=== PATIENT | female | born 1945 | race Caucasian/White ===

== ENCOUNTER 2016-10-22 15:17 | Emergency (ER) | payer OTHER ==
[2016-10-22 15:39] VITALS: RESP 18; TEMP 98.4; O2SAT 96
[2016-10-22] MEDS ORDERED: NS 1,000 ML IV ONE ×2 (15:43→16:54)
[2016-10-22] MEDS ORDERED: ONDANSETRON 4 MG/2 ML VIAL IVP ONE (15:43)
--- NOTE | 2016-10-22 15:46 | EDPHY ---
H & P Stated Complaint: bladder infection, N/V Time Seen by Provider: 10/22/16 15:39 HPI/ROS: CHIEF COMPLAINT: Dysuria, nausea vomiting HISTORY OF PRESENT ILLNESS: Patient is a 71-year-old female comes to the emergency department complaining of dysuria and frequency persistently over the last 2 weeks. She states that she has been taking Azo and trying to drink more water. She has not had a fever or flank pain. Last night however she began having diarrhea and then she vomited once this morning. No blood in her stool or vomit. 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 REVIEW OF SYSTEMS: Constitutional: denies: chills, fever, recent illness, recent injury EENTM: denies: blurred vision, double vision, nose congestion Respiratory: denies: cough, shortness of breath Cardiac: denies: chest pain, irregular heart rate, lightheadedness, palpitations Gastrointestinal/Abdominal: See HPI Genitourinary: See HPI Musculoskeletal: denies: joint pain, muscle pain Skin: denies: lesions, rash, jaundice, bruising Neurological: denies: headache, numbness, paresthesia, tingling, dizziness, weakness Hematologic/Lymphatic: denies: blood clots, easy bleeding, easy bruising Immunologic/allergic: denies: HIV/AIDS, transplant EXAM: GENERAL: Well-appearing, well-nourished and in no acute distress. HEAD: Atraumatic, normocephalic. EYES: Pupils equal round and reactive to light, extraocular movements intact, sclera anicteric, conjunctiva are normal. ENT: TMs normal, nares patent, oropharynx clear without exudates. Dry mucous membranes. NECK: Normal range of motion, supple without lymphadenopathy or JVD. LUNGS: Breath sounds clear to auscultation bilaterally and equal. No wheezes rales or rhonchi. HEART: Regular rate and rhythm without murmurs, rubs or gallops. ABDOMEN: Soft, nontender, normoactive bowel sounds. No guarding, no rebound. No masses appreciated. BACK: No CVA tenderness, no spinal tenderness, step-offs or deformities EXTREMITIES: Normal range of motion, no pitting or edema. No clubbing or cyanosis. NEUROLOGICAL: Cranial nerves II through XII grossly intact. Normal speech, normal gait. 5/5 strength, normal movement in all extremities, normal sensation PSYCH: Normal mood, normal affect. SKIN: Warm, dry, normal turgor, no visible rashes or lesions. Source: Patient Exam Limitations: No limitations - Personal History Current Tetanus/Diphtheria Vaccine: Yes Current Tetanus Diphtheria and Acellular Pertussis (TDAP): Yes - Medical/Surgical History Hx Asthma: No Hx Chronic Respiratory Disease: No Hx Diabetes: No Hx Cardiac Disease: No Hx Renal Disease: No Hx Cirrhosis: No Hx Alcoholism: No Hx HIV/AIDS: No Hx Splenectomy or Spleen Trauma: No Other PMH: appy. breast surg r/t breast ca. Glaucoma. HTN - Family History Significant Family History: No pertinent family hx - Social History Smoking Status: Never smoked Alcohol Use: Sober Drug Use: None Constitutional: Initial Vital Signs Temperature (C) 36.9 C 10/22/16 15:35 Heart Rate 87 10/22/16 15:35 Respiratory Rate 18 10/22/16 15:35 Blood Pressure 178/91 H 10/22/16 15:35 O2 Sat (%) 96 10/22/16 15:35 O2 Delivery Mode Room Air Allergies/Adverse Reactions: Sulfa (Sulfonamide Antibiotics) [Sulfa(Sulfonamide Antibiotics)] Allergy (Mild, Verified 10/25/13 18:14) Vomiting oxycodone Allergy (Verified 10/22/16 15:39) Home Medications: Medication Instructions Recorded Atenolol/Chlorthalidone [Tenoretic 1 each PO DAILY 04/03/12 50 Tablet] Breast Ca Medicine 08/31/13 LUMIGAN 0.03% 08/31/13 Azithromycin [Zithromax tab 250 mg] 250 mg PO DAILY #6 tab 10/25/13 Benzonatate [Tessalon Pearles] 200 mg PO Q6-8PRN PRN #30 cap 10/25/13 Hydrocodone/APAP 5/325 [Shingleton 1 tab PO Q4 PRN #15 tab 10/25/13 5/325 (*)] Cephalexin [Keflex] 500 mg PO TID #21 cap 10/22/16 Ondansetron Odt [Zofran Odt 4 mg 4 mg PO Q4 PRN #20 tab 10/22/16 (RX)] Medical Decision Making ED Course/Re-evaluation: The patient's abdomen is completely nontender. We will hydrate and treat for nausea and obtain lab work. 4:30 p.m. the patient is feeling much better. She has not had any more vomiting or diarrhea. I will give her an IV dose of Keflex here. She still looks mildly dehydrated clinically. I will give her another 1 L of fluids. Patient is happy with this plan. She is feeling much better. I will discharge with antibiotics and prescriptions for nausea medication. She declines further workup or testing at this time. Differential Diagnosis: Partial list of the Differential diagnosis considered include but were not limited to; urinary tract infection, dehydration, vomiting and diarrhea and although unlikely based on the history and physical exam, I also considered sepsis, pyelonephritis, kidney stone, aneurysm, diverticulitis. I discussed these differential diagnoses and the plan with the patient as well as the usual and expected course. The patient understands that the diagnosis is provisional and that in medicine we are not always correct and that further workup is often warranted. Usual and customary warnings were given. All of the patient's questions were answered. The patient was instructed to return to the emergency department should the symptoms at all worsen or return, otherwise to followup with the physician as we discussed. - Data Points Laboratory Results: Laboratory Results 10/22/16 15:50 10/22/16 15:50 Microbiology Results: MICROBIOLOGY 10/22/16 Unknown Unspecified Urine Culture - Preliminary Gram Neg David [employer] Medications Given: Discontinued Medications Sodium Chloride (Ns) 1,000 mls @ 0 mls/hr IV ONCE ONE PRN Reason: Wide Open Stop: 10/22/16 15:44 Last Admin: 10/22/16 15:53 Dose: 1,000 mls Ceftriaxone Sodium 1 gm/ (Sodium Chloride) 100 mls @ 200 mls/hr IV EDNOW ONE PRN Reason: Protocol Stop: 10/22/16 17:02 Last Admin: 10/22/16 16:53 Dose: 100 mls Sodium Chloride (Ns) 1,000 mls @ 0 mls/hr IV ONCE ONE PRN Reason: Wide Open Stop: 10/22/16 16:55 Last Admin: 10/22/16 16:50 Dose: 1,000 mls Ondansetron HCl (Zofran) 4 mg IVP EDNOW ONE Stop: 10/22/16 15:44 Last Admin: 10/22/16 16:00 Dose: 4 mg Departure - Departure Disposition: Home, Routine, Self-Care Clinical Impression: Urinary tract infection Qualifiers: Urinary tract infection type: acute cystitis Hematuria presence: without hematuria Qualified Code(s): N30.00 - Acute cystitis without hematuria Condition: Good Instructions: Urinary Tract Infection in Women (ED) Referrals: Kelin Serrano MD [Primary Care Provider] - As per Instructions Prescriptions: Cephalexin [Keflex] 500 mg PO TID #21 cap Ondansetron Odt [Zofran Odt 4 mg (RX)] 4 mg PO Q4 PRN #20 tab PRN Reason: Nausea & Vomiting
[2016-10-22 16:07] LABS: % IMMATURE GRANULYOCYTES 0.2 % (0.0-1.1); ABSOLUTE IMMATURE GRANULOCYTES 0.02 10^3/uL (0.00-0.10); ADD DIFF? NO; ADD MORPH? NO; ADD SCAN? NO; ATYPICAL LYMPHOCYTE FLAG 0 (0-99); FRAGMENT RBC FLAG 0 (0-99); HEMATOCRIT 40.7 % (38.0-47.0); HEMOGLOBIN 14.1 g/dL (12.6-16.3); LEFT SHIFT FLG 0 (0-99); LIPEMIA HEMOLYSIS FLAG 90 (0-99); MEAN CELL HEMOGLOBIN 31.5 pg (27.9-34.1); MEAN CELL HEMOGLOBIN CONCENTR. 34.6 g/dL (32.4-36.7); MEAN CELL VOLUME 91.1 fL (81.5-99.8); MEAN PLATELET VOLUME 10.4 fL (8.7-11.7); PLATELET CLUMPS FLAG 10 (0-99); PLATELET COUNT 247 10^3/uL (150-400); RED BLOOD CELL COUNT 4.47 10^6/uL (4.18-5.33); RED CELL DISTRIBUTION WIDTH 12.7 % (11.5-15.2)
[2016-10-22 16:13] LABS: COLOR ORANGE
[2016-10-22 16:22] LABS: BACTERIA 4+ /hpf (NONE SEEN); MUCUS 1+ /lpf (NONE-1+); WBC,URINE 15-25 /hpf (0-3)
[2016-10-22 16:27] LABS: ALANINE AMINOTRANSFERASE 31 IU/L (9-52); ALBUMIN 4.1 g/dL (3.5-5.0); ALKALINE PHOSPHATASE 91 IU/L (38-126); ANION GAP 18 mEq/L (8-16); ASPARTATE AMINOTRANSFERASE 26 IU/L (14-46); BILIRUBIN,TOTAL 1.5 mg/dL (0.1-1.4); BILIRUBIN-CONJUGATED 0.2 mg/dL (0.0-0.5); BILIRUBIN-UNCONJUGATED 1.3 mg/dL (0.0-1.1); CARBON DIOXIDE 18 mEq/l (22-31); CHLORIDE 102 mEq/L (97-110); CREATININE 0.6 mg/dL (0.6-1.0); GLOMERULAR FILTRATION RATE > 60; GLUCOSE 107 mg/dL (70-100); POTASSIUM 3.9 mEq/L (3.5-5.2); SODIUM 138 mEq/L (134-144); TOTAL PROTEIN 7.1 g/dL (6.3-8.2)
[2016-10-22 18:24] VITALS: BP 177/87; PULSE 85
== END 2016-10-22 18:18 | disposition home or self-care (01) ==
LOC: CED 15:17
DX: N30.00 Acute cystitis without hematuria (principal); B96.1 Klebsiella pneumoniae [K. pneumoniae] as the cause of diseases classified elsewhere; I10 Essential (primary) hypertension; Z85.3 Personal history of malignant neoplasm of breast
CPT/HCPCS: 96361; 96365; 96375; 99284; J0696; J2405; 80048-PO; 80076-PO; 81003-PO; 81015-PO; 83690-PO; 85025-PO

== ENCOUNTER → 2017-04-28 | Outpatient (CLI) | payer OTHER | LOC: FIMAGING 16:01 | PROVIDERS: ATTEND Internal Medicine Hematology & Oncology | DX: Z12.31 Encounter for screening mammogram for malignant neoplasm of breast (principal); Z85.3 Personal history of malignant neoplasm of breast | CPT/HCPCS: G0202-52 ==

== ENCOUNTER 2017-06-12 15:08 | Emergency (ER) | payer OTHER ==
[2017-06-12 15:16] VITALS: TEMP 97.7
[2017-06-12] MEDS ORDERED: CEPHALEXIN 500 MG CAP PO ONE (15:35)
[2017-06-12] MEDS ORDERED: ATENOLOL 50 MG TAB PO ONE (15:35)
--- NOTE | 2017-06-12 15:46 | EDPHY ---
H & P Stated Complaint: HTN/YOUSSEF ON ABX FOR UTI Time Seen by Provider: 06/12/17 15:26 HPI/ROS: CHIEF COMPLAINT: High blood pressure urinary tract infection HISTORY OF PRESENT ILLNESS: The patient is a 71-year-old healthy female who was referred to the emergency department by the triage nurse at her primary is office. She has been dealing with urinary tract infection for the last 10 days. She took a 7 day course of Cipro and returned to the clinic stating that it did not help and they extended her to a 10 day course. She has now finished all 10 days and states that she still having symptoms. She states that Keflex has worked better for her in the past and wishes to be switched. While she was on the phone with her triage nurse she told him that her blood pressure has been running high around 202/119. Her doctor had told her to monitor because they noticed it was high the office but did not want to add to her antihypertensives while she was having the urine infection. The triage nurse became alarmed this high blood pressure and recommended the patient come to the ER. The patient did not think that she needed to come but was Obedient to nurses request. She denies chest pain. She denies shortness of breath. To me she denies headache. She denies nausea vomiting or diarrhea. REVIEW OF SYSTEMS: Constitutional: denies: chills, fever, recent illness, recent injury EENTM: denies: blurred vision, double vision, nose congestion Respiratory: denies: cough, shortness of breath Cardiac: denies: chest pain, irregular heart rate, lightheadedness, palpitations Gastrointestinal/Abdominal: denies: abdominal pain, diarrhea, nausea, vomiting, blood streaked stools Genitourinary: See HPI Musculoskeletal: denies: joint pain, muscle pain Skin: denies: lesions, rash, jaundice, bruising Neurological: denies: headache, numbness, paresthesia, tingling, dizziness, weakness Hematologic/Lymphatic: denies: blood clots, easy bleeding, easy bruising Immunologic/allergic: denies: HIV/AIDS, transplant EXAM: GENERAL: Well-appearing, well-nourished and in no acute distress. HEAD: Atraumatic, normocephalic. EYES: Pupils equal round and reactive to light, extraocular movements intact, sclera anicteric, conjunctiva are normal. ENT: TMs normal, nares patent, oropharynx clear without exudates. Moist mucous membranes. NECK: Normal range of motion, supple without lymphadenopathy or JVD. LUNGS: Breath sounds clear to auscultation bilaterally and equal. No wheezes rales or rhonchi. HEART: Regular rate and rhythm without murmurs, rubs or gallops. ABDOMEN: Soft, nontender, normoactive bowel sounds. No guarding, no rebound. No masses appreciated. BACK: No CVA tenderness, no spinal tenderness, step-offs or deformities EXTREMITIES: Normal range of motion, no pitting or edema. No clubbing or cyanosis. NEUROLOGICAL: Cranial nerves II through XII grossly intact. Normal speech, normal gait. 5/5 strength, normal movement in all extremities, normal sensation PSYCH: Normal mood, normal affect. SKIN: Warm, dry, normal turgor, no visible rashes or lesions. Source: Patient Exam Limitations: No limitations - Personal History Current Tetanus/Diphtheria Vaccine: Yes - Medical/Surgical History Hx Asthma: No Hx Chronic Respiratory Disease: No Hx Diabetes: No Hx Cardiac Disease: No Hx Renal Disease: No Hx Cirrhosis: No Hx Alcoholism: No Hx HIV/AIDS: No Hx Splenectomy or Spleen Trauma: No Other PMH: appy. breast surg r/t breast ca. Glaucoma. HTN - Family History Significant Family History: No pertinent family hx - Social History Smoking Status: Never smoked Alcohol Use: Sober Drug Use: None Constitutional: Initial Vital Signs Temperature (C) 36.5 C 06/12/17 15:12 Heart Rate 66 06/12/17 15:12 Respiratory Rate 16 06/12/17 15:12 Blood Pressure 186/99 H 06/12/17 15:12 O2 Sat (%) 96 06/12/17 15:12 O2 Delivery Mode Room Air Allergies/Adverse Reactions: Sulfa (Sulfonamide Antibiotics) [Sulfa(Sulfonamide Antibiotics)] Allergy (Mild, Verified 06/12/17 15:09) Vomiting oxycodone Allergy (Verified 06/12/17 15:09) Home Medications: Medication Instructions Recorded Atenolol/Chlorthalidone [Tenoretic 1 each PO DAILY 04/03/12 50 Tablet] Breast Ca Medicine 08/31/13 LUMIGAN 0.03% 08/31/13 Cephalexin [Keflex] 500 mg PO TID #21 cap 10/22/16 Cephalexin [Keflex] 500 mg PO TID #21 cap 06/12/17 Lisinopril 06/12/17 Medical Decision Making ED Course/Re-evaluation: The patient is asymptomatic other than her urinary complaints. We will send her urine for cultures and switch her to Keflex. This is more favorable antibiotic coverage an [facility]. She is agreeable to this. I will also give her an extra dose of atenolol. We will observe. Otherwise she does not wish to have blood work or EKG. I believe that this is reasonable. The patient is borderline bradycardic. Instead of giving her extra atenolol we will treat her with clonidine. The patient has had some decrease in her blood pressure although it is intermediate. She is asymptomatic and does not wish to wait here any longer. Differential Diagnosis: Partial list of the Differential diagnosis considered include but were not limited to; urinary tract infection, hypertension, anxiety and although unlikely based on the history and physical exam, I also considered acute coronary disease, CVA, sepsis. I discussed these differential diagnoses and the plan with the patient as well as the usual and expected course. The patient understands that the diagnosis is provisional and that in medicine we are not always correct and that further workup is often warranted. Usual and customary warnings were given. All of the patient's questions were answered. The patient was instructed to return to the emergency department should the symptoms at all worsen or return, otherwise to followup with the physician as we discussed. - Data Points Laboratory Results: 06/12/17 15:30 Urine Color PALE YELLOW Urine Appearance CLEAR Urine pH 7.0 (5.0-7.5) Ur Specific [place] 1.004 (1.002-1.030) Urine Protein 2+ H (NEGATIVE) Urine Ketones NEGATIVE (NEGATIVE) Urine Blood 1+ H (NEGATIVE) Urine Nitrate NEGATIVE (NEGATIVE) Urine Bilirubin NEGATIVE (NEGATIVE) Urine Urobilinogen NEGATIVE EU EU (0.2-1.0) Ur Leukocyte Esterase NEGATIVE (NEGATIVE) Urine RBC 1-3 /hpf /hpf (0-3) Urine WBC 3-5 /hpf H /hpf (0-3) Ur Epithelial Cells NONE SEEN /lpf /lpf (NONE-1+) Urine Mucus TRACE /lpf /lpf (NONE-1+) Urine Glucose NEGATIVE (NEGATIVE) Medications Given: Discontinued Medications Cephalexin HCl (Keflex) 500 mg PO EDNOW ONE PRN Reason: Protocol Stop: 06/12/17 15:36 Last Admin: 06/12/17 16:17 Dose: 500 mg Clonidine (Catapres) 0.1 mg PO EDNOW ONE Stop: 06/12/17 16:13 Last Admin: 06/12/17 16:17 Dose: 0.1 mg Ibuprofen (Motrin) 600 mg PO EDNOW ONE Stop: 06/12/17 16:23 Last Admin: 06/12/17 16:24 Dose: 600 mg Departure - Departure Disposition: Home, Routine, Self-Care Clinical Impression: Urinary tract infection Qualifiers: Urinary tract infection type: acute cystitis Hematuria presence: without hematuria Qualified Code(s): N30.00 - Acute cystitis without hematuria Hypertension Qualifiers: Hypertension type: essential hypertension Qualified Code(s): I10 - Essential ( primary) hypertension Condition: Fair Instructions: Urinary Tract Infection in Women (ED), Hypertension (ED) Referrals: NONE *PRIMARY CARE P,. [Primary Care Provider] - As per Instructions Kelin Serrano MD [Medical Doctor] - As per Instructions Prescriptions: Cephalexin [Keflex] 500 mg PO TID #21 cap
[2017-06-12] MEDS ORDERED: METOPROLOL TARTRATE 25 MG TAB ONE (15:55)
[2017-06-12] MEDS ORDERED: IBUPROFEN 600 MG TAB PO ONE (16:22)
[2017-06-12 16:33] VITALS: RESP 16
[2017-06-12 16:52] VITALS: BP 186/110; PULSE 73; O2SAT 98
== END 2017-06-12 16:51 | disposition home or self-care (01) ==
DX: I10 Essential (primary) hypertension (principal); N30.00 Acute cystitis without hematuria; B96.89 Other specified bacterial agents as the cause of diseases classified elsewhere; Z85.3 Personal history of malignant neoplasm of breast

== ENCOUNTER 2017-06-15 11:09 | Inpatient (IN) | payer OTHER ==
--- NOTE | 2017-06-15 11:21 | EDPHY ---
HPI/HX/ROS/PE/MDM Narrative: CHIEF COMPLAINT: Bradycardia HPI: This patient is a 71 year old female with history of hypertension presenting with shortness of breath and bradycardia. She was evaluated in this emergency department 06/12/16 for persistent UTI and hypertension. She was discharged with a course of Keflex at that time. She is generally on Atenolol 50mg daily and Lisinopril for her hypertension. She called her primary care provider's office regarding her hypertension, and was instructed to take one extra Atenolol if her blood pressure remained high. For the last two night, she has taken two 50mg Atenolol tablets along with her lisinopril. This morning, she woke and felt her pulse was too slow. She measured it, and noted it to be around 40 bpm, so presents for evaluation. She states there is no chance she took any other additional medications. She feels warm, clammy, and short of breath at this time. She denies chest pain, syncope, nausea, vomiting, flank pain, or other associated symptoms. REVIEW OF SYSTEMS: Aside from elements discussed in the HPI, a comprehensive 10-point review of systems was reviewed and is negative. PMH: Breast cancer s/p surgical resection. Glaucoma. Appendectomy. SOCIAL HISTORY: . at bedside. Retired. PHYSICAL EXAM: General:Patient is alert, in no acute distress. ENT:Eyes are normal to inspection. ENT inspection normal. Neck: Normal inspection. Full range of motion. Respiratory:No respiratory distress. Breath sounds normal bilaterally. Cardiovascular: Bradycardic. Strong peripheral pulses. Normal cap refill. Abdomen:The abdomen is nontender to palpation. There are no peritoneal signs. There are normal bowel sounds. Back: Normal to inspection. No tenderness to palpation. Skin: Normal color. No rash. Warm and dry. Extremities: Normal appearance. Full range of motion. Neuro: Oriented x3. Normal motor function. Normal sensory function. ED Course: 71 y/o female presents with bradycardia and shortness of breath after doubling her Atenolol dosage for the past two days. The patient is alert and talking, in no apparent distress. Pacer pads placed. Plan for EKG, chest x-ray, labs including CBC, BMP, Troponin. EKG was ordered and interpreted by myself. Please see inDplay system for official reading. Laboratory studies unremarkable. Troponin negative. 11:[address] Canales, welfare director. He will consult. 12:28 Dr. Canales at bedside. He recommends admission for further observation, and accepts the patient for admission for bradycardia. - Data Points Laboratory Results: Laboratory Results 06/15/17 11:31 06/15/17 11:31 06/15/1718 06/15/17 11:31 11:31 11:31 WBC 6.22 10^3/uL 10^3/uL (3.80-9.50) RBC 4.52 10^6/uL 10^6/uL (4.18-5.33) Hgb 14.3 g/dL g/dL (12.6-16.3) Hct 42.1 % % (38.0-47.0) MCV 93.1 fL fL (81.5-99.8) MCH 31.6 pg pg (27.9-34.1) MCHC 34.0 g/dL g/dL (32.4-36.7) RDW 13.0 % % (11.5-15.2) Plt Count 273 10^3/uL 10^3/uL (150-400) MPV 11.2 fL fL (8.7-11.7) Neut % (Auto) 65.6 % % (39.3-74.2) Lymph % (Auto) 20.1 % % (15.0-45.0) [place] % (Auto) 10.1 % % (4.5-13.0) Eos % (Auto) 1.9 % % (0.6-7.6) Baso % (Auto) 1.8 % H % (0.3-1.7) Nucleat RBC Rel Count 0.0 % % (0.0-0.2) Absolute Neuts (auto) 4.08 10^3/uL 10^3/uL (1.70-6.50) Absolute Lymphs (auto) 1.25 10^3/uL 10^3/uL (1.00-3.00) Absolute Monos (auto) 0.63 10^3/uL 10^3/uL (0.30-0.80) Absolute Eos (auto) 0.12 10^3/uL 10^3/uL (0.03-0.40) Absolute Basos (auto) 0.11 10^3/uL H 10^3/uL (0.02-0.10) Absolute Nucleated RBC 0.00 10^3/uL 10^3/uL (0-0.01) Immature Gran % 0.5 % % (0.0-1.1) Immature Gran # 0.03 10^3/uL 10^3/uL (0.00-0.10) Sodium 141 mEq/L mEq/L (134-144) Potassium 5.0 mEq/L mEq/L (3.5-5.2) Chloride 106 mEq/L mEq/L (97-110) Carbon Dioxide 21 mEq/l L mEq/l (22-31) Anion Gap 14 mEq/L mEq/L (8-16) BUN 23 mg/dL mg/dL (7-23) Creatinine 0.9 mg/dL mg/dL (0.6-1.0) Estimated GFR > 60 Glucose 136 mg/dL H mg/dL (70-100) Calcium 10.0 mg/dL mg/dL (8.5-10.4) Magnesium 1.9 mg/dL mg/dL (1.6-2.3) Troponin I < 0.012 ng/mL ng/mL (0.000-0.034) TSH 1.910 uIU/mL uIU/mL (0.465-4.680) Medications Given: Anastrozole (Arimidex) 1 mg PO DAILY [facility] Stop: 12/12/17 13:44 Last Admin: 06/15/17 14:44 Dose: 1 mg Bimatoprost (Lumigan 0.01%) 1 drops EACHEYE DAILY KIRBY Stop: 12/12/17 13:44 Last Admin: 06/15/17 14:38 Dose: Not Given Cephalexin HCl (Keflex) 500 mg PO TID KIRBY PRN Reason: Protocol Stop: 07/15/17 15:59 Last Admin: 06/15/17 14:41 Dose: 500 mg Potassium Chloride/Sodium Chloride (Ns W/ 20 Kcl/L) 1,000 mls @ 125 mls/hr IV CONT KIRBY Stop: 12/12/17 13:44 Last Admin: 06/15/17 14:26 Dose: 1,000 mls Lisinopril (Zestril) 5 mg PO DAILY KIRBY Stop: 12/12/17 13:44 Last Admin: 06/15/17 14:38 Dose: Not Given General Time Seen by Provider: 06/15/17 11:20 Initial Vital Signs: Initial Vital Signs Temperature (C) 36.4 C 06/15/17 11:14 Heart Rate 41 L 06/15/17 11:14 Respiratory Rate 20 06/15/17 11:14 Blood Pressure 117/80 06/15/17 11:14 O2 Sat (%) 98 06/15/17 11:14 O2 Delivery Mode Room Air Allergies/Adverse Reactions: Sulfa (Sulfonamide Antibiotics) [Sulfa(Sulfonamide Antibiotics)] Allergy (Mild, Verified 06/15/17 11:13) Vomiting oxycodone Allergy (Verified 06/15/17 11:13) Home Medications: Medication Instructions Recorded Anastrozole [Arimidex 1 mg (*)] 1 mg PO DAILY 08/31/13 Bimatoprost 0.01% [Lumigan 0.01% 1 drops EACHEYE DAILY 08/31/13 (*)] Lisinopril [Zestril 5 mg (*)] 5 mg PO DAILY 06/12/17 Atenolol [Tenormin 50 mg (*)] 50 mg PO DAILY 06/15/17 Cephalexin [Keflex] 500 mg PO TID 06/15/17 Departure - Departure Disposition: [facility] Inpatient Acute Clinical Impression: Bradycardia Condition: Fair Report Scribed for: Mayco Jarrett Report Scribed by: Melba Joshi Date of Report: 06/15/17 Time of Report: 11:41 Physician Review and Approval Statement: Portions of this note were transcribed by an ED scribe. I personally performed the history, physical exam, and medical decision making; and confirm the accuracy of the information in the transcribed note.
--- NOTE | 2017-06-15 11:27 | CPEKG ---
Heart Rate: 76 RR Interval: 789 P-R Interval: 132 QRSD Interval: 80 QT Interval: 388 QTC Interval: 437 P Axson: 55 QRS Axson: 11 T Wave Axson: 20 EKG Severity - BORDERLINE ECG - EKG Impression: SINUS RHYTHM EKG Impression: PROBABLE LEFT ATRIAL ABNORMALITY Electronically Signed By: David Russo 16-Jun-2017 20:28:48
[2017-06-15 13:04] LABS: PLATELET COUNT 273 10^3/uL (150-400)
[2017-06-15] MEDS ORDERED: ALBUTEROL 3 ML DEYVIAL IH PRN (13:36)
[2017-06-15] MEDS ORDERED: ZOLPIDEM TARTRATE 5 MG TAB PO PRN (13:36)
[2017-06-15] MEDS ORDERED: diphenhydrAMINE 25 MG CAP PO PRN (13:36)
[2017-06-15] MEDS ORDERED: ONDANSETRON 4 MG/2 ML VIAL IVP PRN (13:36)
[2017-06-15] MEDS ORDERED: ONDANSETRON DISINTEGRATING 4 MG TAB PO PRN (13:36)
[2017-06-15] MEDS ORDERED: NS W/ 20 KCl/L 1,000 ML IV SCH (13:45)
--- NOTE | 2017-06-15 14:28 | GHP ---
[f rep st] HISTORY AND PHYSICAL DATE OF ADMISSION: 06/15/2017 CHIEF COMPLAINT: Shortness of breath, exertional shortness of breath and bradycardia. HISTORY OF PRESENT ILLNESS: This is a 71-year-old female with a long history of hypertension, which for years has been treated with atenolol only. Approximately 1 year ago, lisinopril was added and enriqueta bustillos continued to do well. 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 These episodes would happen in the morning and she noticed them when she was wa lking up a small hill from her car to her place of work. She would become short of breath she notice d and feel very tired, sometimes flushed, and it would pass in approximately 30 seconds. She has not ed these things without further evaluation until 1 or 2 days ago, when her blood pressure was noted t o be elevated and her PCP suggested that she take an extra dose of her atenolol, thus she went from a tenolol 50 mg q.h.s. to 100 mg q.h.s. yesterday evening. This morning she got out of bed, she felt t ired, and noted that when she climbs steps she was short of breath and again flushed. As opposed to the previous episodes which would resolve in approximately 30 seconds, this did not resolve. She con tinued to feel tired, flushed and would experience exertional shortness of breath then when she was w alking on the level. She took her own blood pressure and it was approximately 140/80, yet her pulse was in the 40s. Thus, she came to the emergency department concerned that probably she had taken too much atenolol, but was concerned that if her heart rate actually declined further. In the emergency department, she was noted to have a long pause, with a heart rate less than 30 on 1 monitor strip. During this time, she has felt warm and slightly clammy, and had exertional shortness of breath, but she denies having chest pain, syncope, nausea, vomiting, any flank pain or preceding fever, cold, cough, sore throat, loose stools or diarrhea. There has also been no recent head trauma, visual or auditory changes. She denies any prior history of coronary artery disease. She also reports that she thinks she has blood sugar issues, but only in the morning, again this date s to the last 6-12 months, when she would notice that suddenly in the morning she would become quite hungry and sometimes very weak. These episodes also seen in the past after she would eat. PAST MEDICAL HISTORY: 1. Hypertension for many years, as noted in the HPI. 2. Breast carcinoma, diagnosed in 2011, status post right modified mastectomy. 3. Osteopenia noted on a recent DEXA scan. PAST SURGICAL HISTORY: An appendectomy and a right modified radical mastectomy. REVIEW OF SYSTEMS: A 10-point review of systems is negative, except as noted in the HPI. Note that she has recently, in the last few days, noted dysuria and was prescribed Keflex, which she is taking at the time of admission. MEDICATIONS: Are noted in the EMR, and will be reconciled, these include lisinopril 5 mg daily, Kefl ex, which she has taken for a recent UTI. Lumigan eyedrops, atenolol usually prescribed at 50 mg roshni ly, and Arimidex 1 mg daily. 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 Tobacco: None. Alcohol: She will have a glass of wine on an occasion, but not on a regular daily basis. Drugs: None. FAMILY HISTORY: Positive for her father and siblings who have hypertension. Her mother was otherwis e healthy. ALLERGIES: None, except she reports sulfa causes an upset stomach. It does not result in a rash or bronchopulmonary problems. PHYSICAL EXAM: GENERAL: A pleasant, alert female, who appears in no distress, but she is slightly a nxious. VITAL SIGNS: Blood pressures were normal, but she has one reading at 190/98, this will be r etaken. She has a monitor strip, which shows bradycardia with pause, to a rate of less than 30. She is currently in a sinus rhythm on the monitor at approximately 60-70. Room air oxygenation is sola l. HEENT: Normal. Tongue, buccal mucosa appear normal. Eyes show bulbar conjunctivae injection wit hout exudate. NECK: Supple without meningismus. JVP is not elevated. LUNGS: Clear to P and A wit hout wheezing or rales. HEART: Singular S1, physiologically split S2. No murmur, gallop, or rub is noted. CHEST WALL: Shows normal breast architecture without masses. ABDOMEN: Slightly overweight. Normoactive bowel sounds. No masses, tenderness, or organomegaly. E XTREMITIES: No edema, cyanosis, clubbing. NEUROLOGIC: Oriented x3. Slightly anxious female. Cran ial nerves 2-12 intact to specific testing. Motor and sensory function are intact. LABORATORY: CBC is entirely normal. Her BMP is also normal, except for a glucose of 136. A troponi n is pending. Her potassium is 5.0. Electrocardiogram reveals a sinus rhythm at 76, RP 0.13, QRS of 0.08, QT interval is 0.437 and 0.42. There is a probable left atrial abnormality, with an inverted T-wave in V1 and V2. Otherwise, ECG i s normal. Chest x-ray is pending at this dictation. ASSESSMENT: 1. Six month history of bradycardia, and now noted to have an extended sinus pause today, following taking atenolol 100 mg yesterday evening. She has the 6 month history of shortness of breath in the morning, along with flushing. It is possible that this represents extensive beta blockade by atenolo l, as she takes it in the evening. As the day wears on, the level of atenolol then declines, and she no longer experiences the symptoms. Today, she is seen because she took 100 mg of atenolol in the e vening, and she has clear bradycardia secondary to that. It is reasonable to assume that we should l ower the dose of atenolol or stop it all together, as she may be having excess beta blockade with thi s long-acting beta kunal, a more short-acting beta kunal could be used or we could stop it comple tely, and use other medication such as calcium channel blockers and RICHARD inhibitors to manage her hype rtension. As she has no history of coronary disease, there is no additional particular reason to use a beta kunal in this lady. 2. Hypertension. She has a long history of hypertension, which is most recently treated with atenol ol, and more recently atenolol and lisinopril. During this admission, I will stop her atenolol, and we will continue lisinopril, increase its dose and add a second agent if needed. 3. Osteopenia by DEXA scan. This can be followed by her PCP, but she may do well to be taking calci um in light of her history of breast carcinoma. 4. Breast carcinoma, diagnosed 2011, currently being followed by her PCP with yearly mammography. L ast mammography appeared benign. 5. Report of lightheadedness, and a question of the patient is whether she is having blood sugar iss ues. It is possible that the episodes of lightheadedness are more related to her beta blockade than they are to blood sugar issues. As I do not know that for a fact, a hemoglobin A1c will be ordered, and I will order q.6 hour glucose checks just to evaluate the matter during her hospitalization. 6. Her code status will be full. 7. The patient will be admitted on observation status. Time of admission required 50 minutes. /[id number]/MODL
[2017-06-15] MEDS: LISINOPRIL 5 MG TAB PO SCH ×2 (14:38→18:19)
[2017-06-15] MEDS: BIMATOPROST 0.01% 2.5 ML OPHT.BTL EACHEYE SCH (14:38)
[2017-06-15] MEDS: CEPHALEXIN 500 MG CAP PO SCH ×2 (14:41→21:59)
[2017-06-15] MEDS: ANASTROZOLE 1 MG TAB PO SCH (14:44)
[2017-06-15] MEDS ORDERED: ATROPINE SULFATE 1 MG/10 ML SYR ONE (15:06)
--- NOTE | 2017-06-15 18:58 | GCON ---
[f rep st] CONSULTATION HISTORY OF PRESENT ILLNESS: This is a 71-year-old female with past history of hypertension, for which she has been treated with atenolol. About a year back, lisinopril was added to her regimen. Six months back, the patient started experiencing episodes of exertional shortness of breath in the morning when she was waking up and when she was walking up a small hill from her car to her work place. This would last about 30 seconds and would resolve on its own. No progression of this has been noted. On further questioning, she mentions that she has generally been not feeling well and she has had occasional feeling of being flushed which lasts sec. However, recently she has noted elevated blood pressure and it was suggested that she use additional atenolol. She believes that she was given additional 50 of it, in addition to her usual atenolol on Friday, and then she took 100 mg of atenolol on Friday evening. When she woke up this morning, she felt headache and did not feel like herself. She also felt flushed, a feeling similar to what she has felt in the last six months. She attributed this to not having eaten, mainly for breakfast, however , symptoms continued. She checked her blood pressure and her blood pressure was 140/80 and pulse was 40. Considering her symptoms, as well as these numbers , she decided to come to the emergency room. When evaluated in the ER, she was noted to have significant pauses which were [id number]-cm-[id number] over time. These have decreased. On further history, she also mentioned that while walking from the ER lobby to an ER room, she felt lightheaded and dizzy. She continues to feel warm and clammy. She denies any chest pain. She denies any syncope. No recent fevers or chills. PAST MEDICAL HISTORY: Hypertension, breast carcinoma, status post mastectomy, osteopenia. PAST SURGICAL HISTORY: Appendectomy and right modified radical mastectomy. REVIEW OF SYSTEMS: Other than the above, dysuria. MEDICATIONS: Atenolol as mentioned above, lisinopril, Arimidex. 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 No tobacco use. No significant alcohol use. FAMILY HISTORY: Positive for hypertension. ALLERGIES: None, but intolerant to sulfa. PHYSICAL EXAMINATION: GENERAL: Alert, oriented female, with no acute distress. VITAL SIGNS: Blood pressure of 140/80, pulse ranging from 67-77, and during my evaluation 98% oxygen saturation. HEENT: Pupils equal, reacting to light, accommodating. NECK: No thyromegaly. No lymphadenopathy. No JVD. CHEST: Good air entry bilaterally. No rales, rhonchi, or rub. HEART: S1, S2 regular. No S3 heard. No murmurs noted. ABDOMEN: Soft, nontender. No guarding or rigidity. Bowel sounds present. EXTREMITIES: No edema. NEUROLOGIC: Alert, oriented x3. Cranial nerves grossly intact. PSYCHIATRIC: Asking appropriate questions. In good spirits. LABORATORY DATA: Normal. EKG shows normal sinus rhythm, occasional long pauses on tele monitor, even on EKG this a.m. it was noted. IMPRESSION/PLAN: This is a 71-year-old female, who has been treated with lisinopril and atenolol for hypertension, now with increased doses and having increased symptoms of dizziness, headache, warm feeling. It is likely that the pauses are secondary to her additional dose of atenolol and we will wait for 24-30 hours for the atenolol to wash out and see if she has pauses at baseline. However, at current point in time, it is reasonable to stop the atenolol and use lisinopril as a primary antihypertensive agent. I recommend to increase the lisinopril to 10 mg daily, and if need be, increase to 20 mg. We will continue to monitor on telemetry. If despite stopping the beta kunal, and she continues to show these pauses with symptoms, pacemaker will be indicated. Thank you for letting us participate in patient's care. /[id number]/MODL MTDD
[2017-06-15] MEDS: ACETAMINOPHEN 325 MG TAB PO PRN (23:24)
[2017-06-16] MEDS: ACETAMINOPHEN 325 MG TAB PO PRN ×3 (06:09→18:01)
--- NOTE | 2017-06-16 08:04 | CPEKG ---
Heart Rate: 53 RR Interval: 1132 P-R Interval: 124 QRSD Interval: 80 QT Interval: 404 QTC Interval: 380 P [place]: 59 QRS [place]: 25 T Wave [place]: 30 EKG Severity - ABNORMAL ECG - EKG Impression: SINUS RHYTHM EKG Impression: SINUS PAUSE/ARREST WITH ATRIAL ESCAPE EKG Impression: PROBABLE LEFT ATRIAL ABNORMALITY Electronically Signed By: David Russo 16-Jun-2017 20:28:36
--- NOTE | 2017-06-16 08:30 | CPEKG ---
Heart Rate: 44 RR Interval: 1364 P-R Interval: 132 QRSD Interval: 78 QT Interval: 468 QTC Interval: 401 P [place]: 61 QRS [place]: 28 T Wave [place]: 31 EKG Severity - BORDERLINE ECG - EKG Impression: SINUS BRADYCARDIA EKG Impression: PROBABLE LEFT ATRIAL ABNORMALITY Electronically Signed By: Geoffrey Koch 17-Jun-2017 13:51:36
[2017-06-16] MEDS ORDERED: LISINOPRIL 10 MG TAB PO SCH (09:00)
[2017-06-16] MEDS ORDERED: LISINOPRIL 10 MG TAB PO ONE (09:04)
--- NOTE | 2017-06-16 09:36 | ASMTCMCOM ---
CM Note CM Note Notes: 06/16/2017 Case Management Note Reviewed chart. There are no case management d/c needs identified at this time d/t pt age, marital status and activity levels prior to admission. There are no PT or OT consults ordered at this time. Case Management d/c poc: anticipating home independent with follow up as directed. Case Management available if needs change. Date Signed: 06/16/2017 09:37 AM Electronically Signed By:Kelin Pettit RN
--- NOTE | 2017-06-16 10:05 | PDCARPN ---
Cardiology Progress Note Chief Complaint: Dizziness and lightheadedness Assessment/Plan: Assessment: Patient is a 71 y/o female with history of HTN, but no HLP, CAD, or DM, who presents to the ER at [facility] with complaints of worsening (acutely) dizziness and lightheadedness. Telemetry with pauses (up to about 2.5 seconds) were noted. Uncertain how closely these findings correspond with patient's symptoms. No formal cardiovascular work up with stress testing. PCP in the outpatient setting has managed the patient's blood pressure. ACEi tend to result in cough for majority of the family (and, according to the patient's son, the patient as well). Blood pressure was noted to be elevated today (>190 mm Hg systolic). No regular or routine exercise. Plan: Would recommend the patient have ETT (baseline ECG was normal, so MPI is not recommended). Would also begin therapy on ARB given high likelihood of cough with ACEi. Would add HCTZ given the elevation to blood pressures noted. Refrain from beta blockers for the time being. Outpatient 30 day cardiac monitor technician is recommended with follow up in 1-2 weeks (to review the data that has been obtained). Regular and routine exercise is recommended. Uncertain what has resulted in the patient being told about a UTI (WBC was not elevated and U/ A was not particularly abnormal), but with this in the recent history, would not want to place a pacer in the acute phase. Patient is on her second round of antibiotics (according to her). Subjective: Dizziness and weakness have been noted. Reviewed/Discussed With: family, hospitalist, multidisciplinary team Objective: Vital Signs (8 Hrs) Temp Pulse Pulse Pulse Pulse Resp BP 06/16/17 07:47 36.6 C 47 L 13 191/95 H 06/16/17 06:00 60 201/108 H 06/16/17 05:59 65 180/104 H 06/16/17 04:20 59 L 61 67 06/16/17 04:00 36.8 C 67 18 203/103 H BP BP BP Pulse Ox 06/16/17 07:47 95 06/16/17 06:00 06/16/17 05:59 06/16/17 04:20 209/102 H 209/106 H 203/103 H 06/16/17 04:00 97 Intake/Output (24 Hrs) 01/12/2406/16/17 06/17/17 05:59 05:59 05:59 Intake Total 1250 Output Total 2900 500 Balance -1650 -500 Intake: Oral (ml) 400 IV Infused (ml) 850 NS W/ 20 KCl/L 1,000 ml @ 850 125 mls/hr IV CONT KIRBY Rx#:[id number] Output: Urine (ml) 2900 500 Toilet 2900 500 Other: Weight 72.8 kg Intake Quantity Yes Sufficient Number of Voids Toilet 2 1 Result Diagrams: 06/15/17 11:31 06/16/17 03:28 Cardiac Labs: Cardiac Lab Results (72 Hrs) 06/16/17 06/15/17 03:28 19:52 Troponin I < 0.012 < 0.012 EKG: normal sinus rhythm sinus rhythm with pauses (up to 2.5 seconds) Ventricular ectopic beats Telemetry: normal sinus rhythm with pauses (sinus arrest) noted. Review of the timeline with decrease in the frequency of these events being noted. Echocardiogram: not performed - Physical Exam Constitutional: WDWN, healthy appearing, no apparent distress Eyes: PERRL, EOMI Ears, Nose, Mouth, Throat: moist mucous membranes Cardiovascular: regular rate and rhythm, no murmurs, no rubs, no gallops, pulses symmetric bilat, No jugular vein distention Peripheral Pulses: 2+: dorsalis-pedis (R), dorsalis-pedis (L) Respiratory: clear to auscultate bilat, no crackles, no wheezes Gastrointestinal: normoactive bowel sounds Skin: no rashes, no edema Musculoskeletal: no muscular tenderness Neurologic: AAOx3, CN II-XII grossly intact Psychiatric: cooperative, interactive, following commands ICD10 Worksheet Patient Problems: Problems Problem Status Onset Bradycardia Acute Urinary tract infection Acute
--- NOTE | 2017-06-16 11:09 | PDCARST ---
CAR Stress Test Results Type of Stress Test: TM stress test Indication: pauses/dyspnea Description of Procedure: After informed consent was obtained, pt was exercised according to Henrique Protocol. Monitoring was performed with standard stress polymer tester electrode placement. Vital signs were monitored according to protocol throughout the procedure. STRESS EKG AND HEMODYNAMIC DATA. Exercise time: 7 min. This is equivalent to: 8.1 METS. Resting heart rate: 69 bpm. Resting blood pressure: 170/90 mmHg. Resting O2 saturation: 94 %. Peak heart rate: 118 bpm. This is 80% of age predicted maximum heart rate response. Peak blood pressure: 230/100 mmHg. Exercise O2: 96%. Arrhythmias : occasional PVCs with exertion and frequent PVC bigeminy in recovery. Reason for termination: The test was stopped due to maximal exertion. Symptoms: The patient experienced no typical symptoms of angina during stress or recovery. STRESS TEST ANALYSIS. Baseline ECG: SR. Stress ECG: ST with 1 mm STD. exercise induced ischemic ECG changes: Yes. Rhythm: PVCs noted during exercise and recovery. Blood pressure: Resting hypertension with hypertensive blood pressure response to exercise. Exercise tolerance: The patient has normal exercise tolerance adjusted for age and gender. Symptoms: No exercise induced symptoms. Impression: Stress ECG worrisome for ischemia. The [place] Treadmill Score is +2 ( intermediate risk). Conclusion: Consider further testing.
[2017-06-16] MEDS: CEPHALEXIN 500 MG CAP PO SCH (11:18)
[2017-06-16] MEDS: ANASTROZOLE 1 MG TAB PO SCH (11:18)
[2017-06-16] MEDS ORDERED: diphenhydrAMINE 25 MG CAP PO ONE (11:37)
[2017-06-16] MEDS ORDERED: NITROGLYCERIN 0.4 MG BTL SL PRN ×2 (11:37→15:57)
[2017-06-16] MEDS ORDERED: FAMOTIDINE 20 MG TAB PO ONE (11:37)
[2017-06-16] MEDS ORDERED: TEMAZEPAM 15 MG CAP PO PRN (11:37)
[2017-06-16] MEDS ORDERED: ASPIRIN EC 325 MG TAB PO ONE (11:37)
[2017-06-16] MEDS ORDERED: ACETAMINOPHEN 325 MG TAB PO PRN (11:37)
[2017-06-16] MEDS ORDERED: DIAZEPAM 5 MG TAB PO ONE (11:37)
[2017-06-16 11:45] LABS: INR 1.08 (0.83-1.16); PROTIME(PATIENT) 14.2 SEC (12.0-15.0)
[2017-06-16] MEDS ORDERED: NS 1,000 ML IV SCH (11:45)
[2017-06-16] MEDS: LOSARTAN/HCTZ 50/12.5 1 TAB PO SCH (12:00)
[2017-06-16 12:24] LABS: PLATELET COUNT 247 10^3/uL (150-400)
[2017-06-16] MEDS: BIMATOPROST 0.01% 2.5 ML OPHT.BTL EACHEYE SCH (13:45)
[2017-06-16] MEDS ORDERED: MIDAZOLAM 2 MG/2 ML VIAL ONE (13:50)
[2017-06-16] MEDS ORDERED: LIDOCAINE 1% 300 MG/30 ML SDV ONE (13:50)
[2017-06-16] MEDS ORDERED: fentaNYL 100 MCG/2 ML INJ ONE (13:50)
[2017-06-16] MEDS ORDERED: IOPAMIDOL (ISOVUE-370) 150 ML BTL IV ONE (13:50)
[2017-06-16] MEDS ORDERED: PHENAZOPYRIDINE HCL 100 MG TAB PO ONE (14:02)
[2017-06-16] MEDS ORDERED: hydrALAZINE 20 MG/ML VIAL ONE (14:21)
[2017-06-16] MEDS ORDERED: ONDANSETRON 4 MG/2 ML VIAL IVP ONE (14:30)
[2017-06-16] MEDS ORDERED: ONDANSETRON 4 MG/2 ML VIAL ONE (14:41)
--- NOTE | 2017-06-16 14:41 | PDPROPOC ---
Sedation Plan of Care Sedation Plan of Care: vital signs stable, mental status noted, patient educated of risks, benefits, alternatives, patient can tolerate sedation ASA Classification: ASA 2 Planned drugs: fentanyl, midazolam Mallampati Score: Class 1 Mallampati Reference Image: Patient passed 3-3-2 rule?: Yes
--- NOTE | 2017-06-16 14:42 | PDHPUP ---
History & Physical Update H&P update statement: This history and physical update is based on an assessment of the patient which was completed after admission or registration (within 24 hours), but prior to the surgery/procedure. H&P update: H&P reviewed & patient examined, no change in patient's condition since H&P completed
--- NOTE | 2017-06-16 15:51 | PDDXCAT ---
Diagnostic Cath Note - . Date: 06/16/17 Automotive Sales Manager: August Indication: other (abnormal ETT with ST/T wave changes ) - Procedure Access: right groin Procedure: left heart catheterization, coronary angiography, left ventriculogram - Materials Left Heart Cath size: 6F Left Heart Cath materials: standard multipack (JL4, JR4, pigtail) - Findings-Left Heart Catheterization LM: short, bifurcation into the LAD and LCX. No luminal irregularities were noted. LAD: Medium sized vessel with small diagonals noted. Moderate tortuosity from mid vessel to distal vessel. No luminal irregularities were noted. LCX: Medium diameter vessel with single, principal OM. At the bifurcation of the OM, there is luminal irregularities noted (20% at most). RCA: Large, dominant vessel. Tortuosity is noted distally. Large PDA and MARYSE vessels were noted. EDP: 10 mm Hg LVEF: 75% Wall motion: normal Complications: none Estimated blood loss: <50ml Closure method: manual pressure Assessment: 71 y/o female with dizziness and lightheadedness noted. There were concerns that she may need a PPM, but longest pauses noted were 2.5 seconds ( and after a double dose of beta blockers). Some concerns about CAD given the symptom presentation. Angiography without critical lesions noted (20% to the LCX/OM bifur location). Plan: Would arrange for the patient to have a 30 day monitor, and outpatient follow up with cardiology in 1-2 weeks. The patient may still need to have a pacer, but the data that we have to date does not suggest this need at present. Would aggressively treat the patient's notable elevated blood pressure (Hyzaar was started - avoid ACEi given cough, and beta blockers with the pauses noted). Patient will need 6-8 hours of bed rest given manual pressure to groin. Intervention: none Patient Problems: Problems Problem Status Onset Bradycardia Acute Urinary tract infection Acute
[2017-06-16] MEDS ORDERED: ATROPINE SULFATE 1 MG/10 ML SYR IVP PRN (15:57)
[2017-06-16] MEDS ORDERED: ONDANSETRON 4 MG/2 ML VIAL IVP PRN (15:57)
[2017-06-16] MEDS ORDERED: HYDROCODONE/APAP 5/325 TAB PO PRN (15:57)
[2017-06-16] MEDS ORDERED: OXYCODONE/APAP 5/325 TAB PO PRN (15:57)
[2017-06-16] MEDS ORDERED: PHENAZOPYRIDINE HCL 100 MG TAB PO SCH (19:00)
[2017-06-16] MEDS ORDERED: PHENAZOPYRIDINE HCL 100 MG TAB PO PRN (19:31)
--- NOTE | 2017-06-16 19:40 | HOSPPROG ---
Hospitalist Progress Note Assessment/Plan: Assessment: 71-year-old female presents with acute symptomatic sinus bradycardia in the setting of hypertensive urgency and possible persistent urinary tract infection Plan: 1. Sinus bradycardia. Present on EKG in telemetry, patient with 2.5 sec pauses , most likely secondary to unintentional atenolol overdosage with the patient took numerous doses of atenolol for elevated blood pressure -discussed with Dr. Geoffrey Koch, appreciate Cardiology consultation, he does not believe the patient requires a permanent pacemaker at this time, as the atenolol will most likely clear, the patient's heart rate is currently 60 beats per minute and is in normal sinus mechanism -he recommends that the patient receive an outpatient 30 day event monitor and that she follow up with their clinic in 2 weeks -please coordinate with Cardiology tomorrow to secure monitor at time of discharge -continue monitor on telemetry overnight -patient is status post false-positive stress test today, and received cardiac catheterization which demonstrated no evidence of obstructive coronary disease, no obstructive coronary artery cause of impaired yaritza conduction 2. Hypertensive urgency. Patient with systolic blood pressures in the 180-200 range, most likely secondary to under treated hypertension in the outpatient setting as well as recent discontinuation of atenolol after the patient presented for sinus bradycardia outlined above -per Cardiology recommendations, the patient was adjusted to losartan hydrochlorothiazide, and this can be up titrated as needed 3. Possible persistent urinary tract infection. Discussed thoroughly with the patient, she reports that she has experienced urethral burning, urinary urgency with dysuria, occasional gross hematuria, over the past several months, and believes these to be secondary to recurrent urinary tract infections -her most recent symptoms consisted purely of urethral burning, and she was evaluated at [facility] on 06/10/2017, with a urinalysis that appeared to be positive, with pansensitive E coli on the culture -she received appropriate dosing of Keflex and has been taking it since that time, but reports that her symptoms have been ongoing -is not entirely clear to me whether her symptoms are secondary to an overt urinary tract infection versus urethral irritation, and I recommend that the patient receive an outpatient urologic evaluation to rule out bacterial vaginosis verses fungal cause given that her symptoms should have improved with Keflex if they were indeed secondary to the E coli -that being said, the patient is requesting an antibiotic change and although her repeat urinalysis does appear to have sterilized, is not on reasonable to trial a different class of antibiotic and gauge whether her symptoms do improve , have provided her with levofloxacin 750 mg daily and recommended that she gauge response -it is also possible that her occasional urinary frequency is secondary to bladder spasm, and the patient is amenable to utilizing as needed peridium to gauge effect -I have strongly recommended that the patient follow up with Dr. Heather Whitaker at [facility] this week to reassess Diet. Resume once patient is able to sit upright Prophylaxis. High risk patient, SCDs, hold pharm with elevated blood pressures Code. Full Disposition. Upgraded to inpatient admission status given that patient's anticipated length stay is greater than 48 hr for reasonable medical necessity including an abnormal stress test today while evaluating sinus bradycardia and looking for obstructive coronary disease which could cause impaired yaritza conduction, the patient required further diagnostic evaluation with a cardiac catheterization, as well as additional treatment for hypertensive urgency and systolic blood pressures around 200. Subjective: Patient would like to see outpatient specialists including a sap bpc architect and urologist, she reports ongoing urethral irritation and occasional urinary frequency Objective: Vital Signs Temp Pulse Resp BP Pulse Ox 36.5 C 55 L 17 117/89 H 94 06/16/17 18:00 06/16/17 18:00 06/16/17 18:00 06/16/17 18:00 06/16/17 18:00 Laboratory Results 06/16/17 12:10 06/16/17 03:28 06/15/17 06/16/17 06/17/17 05:59 05:59 05:59 Intake Total 1250 225 Output Total 2900 1800 Balance -1650 -1575 PT 14.2 SEC (12.0-15.0) 06/16/17 04:25 INR 1.08 (0.83-1.16) 06/16/17 04:25 - Time Spent With Patient Time Spent with Patient: greater than 25 minutes Time Spent with Patient: Greater than 25 minutes spent on this patients care, greater than 50% of time spent counseling, educating, and coordinating care regarding the above mentioned plan. - Physical Exam Constitutional: no apparent distress, not in pain, No uncomfortable Neurologic: AAOx3 Psychiatric: interacting appropriately, not anxious, not encephalopathic, thought process linear ICD10 Worksheet Patient Problems: Problems Problem Status Onset Urinary tract infection Acute Bradycardia Acute
[2017-06-16 23:36] VITALS: O2SAT 94
[2017-06-17 04:42] VITALS: TEMP 97.9
[2017-06-17 08:13] VITALS: BP 133/68; PULSE 74; RESP 18
[2017-06-17] MEDS: LOSARTAN/HCTZ 50/12.5 1 TAB PO SCH (08:42)
[2017-06-17] MEDS: ANASTROZOLE 1 MG TAB PO SCH (08:42)
[2017-06-17] MEDS: BIMATOPROST 0.01% 2.5 ML OPHT.BTL EACHEYE SCH (08:45)
[2017-06-17] MEDS ORDERED: LISINOPRIL 10 MG TAB PO SCH (09:00)
--- NOTE | 2017-06-17 09:02 | HOSPPROG ---
Hospitalist Progress Note Assessment/Plan: 71 yo F w bradycardia that has resolved p dc of BB neg cath bp controlled home today see dc summary >30 minutes on dc Subjective: no pauses. ready for dc. d/w dr logan Objective: Vital Signs Temp Pulse Resp BP Pulse Ox 36.6 C 74 18 133/68 H 94 06/17/17 08:00 06/17/17 08:00 06/17/17 08:00 06/17/17 08:00 06/17/17 08:00 06/16/17 06/17/17 06/18/17 05:59 05:59 05:59 Intake Total 500 Balance 500 PT 14.2 SEC (12.0-15.0) 06/16/17 04:25 INR 1.08 (0.83-1.16) 06/16/17 04:25 - Physical Exam Constitutional: no apparent distress, appears nourished Eyes: PERRL, anicteric sclera Ears, Nose, Mouth, Throat: moist mucous membranes, hearing normal Cardiovascular: regular rate and rhythym, no murmur, rub, or gallop, No systolic murmur Respiratory: no respiratory distress, no rales or rhonchi Gastrointestinal: normoactive bowel sounds, soft, non-tender abdomen Genitourinary: no bladder fullness, No lin in urethra Skin: warm, normal color Musculoskeletal: full muscle strength Neurologic: AAOx3 Psychiatric: interacting appropriately Lymph, Heme, Immunologic: no cervical LAD ICD10 Worksheet Patient Problems: Problems Problem Status Onset Bradycardia Acute Urinary tract infection Acute
--- NOTE | 2017-06-17 09:13 | PDMN ---
Medical Necessity Medical necessity: Change to IP, as of 06/16/17, per MD; los >2 mn for ongoing eval/tx following abnormal stress test while evaluating sinus bradycardia & looking for obstructive coronary disease; admit for further diagnostic evaluation w/cardiac cath, as well as additional tx for hypertensive urgency w/ SBP around 200; hx HTN; per progress note & order 06/16/17
--- NOTE | 2017-06-17 09:33 | PDCARPN ---
Cardiology Progress Note Chief Complaint: No cardiovascular complaints today. Groin site without pain or tenderness. No significant arrhythmic pathology on telemetry Assessment/Plan: Assessment: 06-17-17 No cardiovascular complaints were voiced today. Angiography yesterday without pathology noted. There was a small lesion (20%) to the LCX/OM bifurcation. Blood pressure is much better controlled with the ARB/diuretic therapy. No protracted pauses were noted on telemetry. Son was present with the patient in the office today. 06-16-17 Patient is a 71 y/o female with history of HTN, but no HLP, CAD, or DM, who presents to the ER at [facility] with complaints of worsening (acutely) dizziness and lightheadedness. Telemetry with pauses (up to about 2.5 seconds) were noted. Uncertain how closely these findings correspond with patient's symptoms. No formal cardiovascular work up with stress testing. PCP in the outpatient setting has managed the patient's blood pressure. ACEi tend to result in cough for majority of the family (and, according to the patient's son, the patient as well). Blood pressure was noted to be elevated today (>190 mm Hg systolic). No regular or routine exercise. Plan: 1. would script the patient Hyzaar (50/12.5) and maintain blood pressure checks to ensure this therapy and dose are appropriate 2. ASA therapy should start given the CAD that was noted on angiography 3. patient will need to have cholesterol and LFTs assessed. If elevation is noted (to the LDL in particular), would start statin therapy 4. regular and routine exercise is recommended Subjective: No cardiovascular complaints Reviewed/Discussed With: family, hospitalist, multidisciplinary team Objective: Vital Signs (8 Hrs) Temp Pulse Pulse Pulse Pulse Resp BP 06/17/17 08:00 36.6 C 74 74 75 74 18 133/68 H 06/17/17 04:00 36.6 C 64 16 135/76 H BP BP BP Pulse Ox 06/17/17 08:00 126/62 H 118/68 133/68 H 94 06/17/17 04:00 94 Intake/Output (24 Hrs) 06/16/17 06/17/17 06/18/17 05:59 05:59 05:59 Intake Total 500 Balance 500 Intake: Oral (ml) 500 Other: Intake Quantity Yes Sufficient Number of Voids Bedpan 1 Toilet 1 Result Diagrams: 06/16/17 12:10 06/16/17 03:28 EKG: normal sinus rhythm with PVCs noted intermittently Telemetry: normal sinus rhythm - Physical Exam Constitutional: WDWN, healthy appearing, no apparent distress Eyes: PERRL, EOMI Ears, Nose, Mouth, Throat: moist mucous membranes Cardiovascular: regular rate and rhythm, no murmurs, no rubs, no gallops Peripheral Pulses: 2+: dorsalis-pedis (R), dorsalis-pedis (L) Respiratory: clear to auscultate bilat, no crackles, no wheezes Gastrointestinal: normoactive bowel sounds Skin: no rashes, no edema Neurologic: AAOx3, CN II-XII grossly intact Psychiatric: cooperative, interactive, following commands ICD10 Worksheet Patient Problems: Problems Problem Status Onset Bradycardia Acute Urinary tract infection Acute
--- NOTE | 2017-06-17 10:02 | ASDISCHSUM ---
Discharge Information Plan Status:Home with No Needs Medically Cleared to Leave:06/16/2017 Discharge Date:06/17/2017 09:56 AM CM D/C Disposition:Home, Routine, Self-Care ADT D/C Disposition:Home, Routine, Self-Care Projected Discharge Date:06/17/2017 09:56 AM Transportation at D/C:Family Discharge Delay Reason: Follow-Up Date:06/17/2017 09:56 AM Discharge Slot: Final Diagnosis: Placement Information Patient Contact Information Contact Name:VINCE Relationship: Address:[address] Home Phone: City:[facility] [facility] Phone: [facility]/Zip Code:[place] [address] Email: Financial Information Financial Class: Primary Plan Desc:MEDICARE OUTPATIENT Primary Plan Number:[id number] Secondary Plan Desc:[employer] INDEMNITY Secondary Plan Number:[id number] Assessment Information BC CM Progress Note CM Note CM Note Notes: 06/16/2017 Case Management Note Reviewed chart. There are no case management d/c needs identified at this time d/t pt age, marital status and activity levels prior to admission. There are no PT or OT consults ordered at this time. Case Management d/c poc: anticipating home independent with follow up as directed. Case Management available if needs change. Date Signed: 06/16/2017 09:37 AM Electronically Signed By:Kelin Pettit RN LACE HONORIO Length of stay for Answers: 1 day current admission Acuity / Level of Care Answers: Was the patient admitted to hospital via the emergency department? Yes: Comorbidities - select Answers: Any tumor (including all that apply lymphoma or leukemia) Emergency dept visits in Answers: 2 last 6 months Score: 8 Date Signed: 06/17/2017 09:35 AM Electronically Signed By:Kelin Pettit RN Case Management Discharge Plan Note Case Management Discharge Discharge Order Complete? Answers: Yes Patient to Obtain Answers: Independently Medications Transportation Arranged Answers: Family/Friends Discharge Comments Notes: 06/17/2017 Case Management Note Pt d/c independent. Date Signed: 06/17/2017 10:01 AM Electronically Signed By:Kelin Pettit RN Intervention Information Intervention Type:*SIA-Signed Date of Service:06/16/2017 11:44 AM Patient Type:Observation Staff Member:Audrey Snowden Hours: Discipline: Severity: Comment:
--- NOTE | 2017-06-17 19:27 | GDS ---
[f rep st] DISCHARGE SUMMARY DISCHARGE DIAGNOSES: 1. Bradycardia, felt secondary to beta kunal therapy and possibly underlying sinus node dysfunctio n. 2. False-positive stress test. A subsequent negative coronary angiogram. 3. Hypertension. Please see admission history and physical by Dr. Barrie James. The patient presented with symptom atic bradycardia with pulse in the 40s and a 2.5 second pause. Beta kunal was held. There was con sideration for pacemaker but felt given that her pulse came into the 60s and 70s, it was no longer re quired. She has a 30-day monitor established. She started on Hyzaar for blood pressure with good co ntrol. Her beta-kunal was discontinued. /[id number]/MODL
== END 2017-06-17 09:56 | disposition home or self-care (01) | DRG 287 ==
LOC: F2W 14:01 → OBSVTOIN 06-16 19:31
PROVIDERS: ADMIT Internal Medicine Cardiovascular Disease; ATTEND Internal Medicine Cardiovascular Disease
PROC: B2111ZZ Fluoroscopy of Multiple Coronary Arteries using Low Osmolar Contrast (ICD-10-PCS; principal; 2017-06-16)
PROC: 4A023N7 Measurement of Cardiac Sampling and Pressure, Left Heart, Percutaneous Approach (ICD-10-PCS; principal; 2017-06-16)
PROC: B2151ZZ Fluoroscopy of Left Heart using Low Osmolar Contrast (ICD-10-PCS; principal; 2017-06-16)
DX: R00.1 Bradycardia, unspecified (principal); T44.7X5A Adverse effect of beta-adrenoreceptor antagonists, initial encounter; I16.0 Hypertensive urgency; Z85.3 Personal history of malignant neoplasm of breast; M85.80 Other specified disorders of bone density and structure, unspecified site; R39.9 Unspecified symptoms and signs involving the genitourinary system
CPT/HCPCS: G0378; J0360; J0461; J1644; J1956; J2250; J2405; J3010; Q9967

== ENCOUNTER 2017-07-09 17:30 | Emergency (ER) | payer OTHER ==
--- NOTE | 2017-07-09 17:41 | EDPHY ---
HPI/HX/ROS/PE/MDM Narrative: CHIEF COMPLAINT: Hypertension HISTORY OF PRESENT ILLNESS: This patient is a 72 year old female with history of hypertension presenting for evaluation of recurrent high blood pressure. She was admitted 06/15/17 for bradycardia due to beta kunal therapy and possible underlying sinus node dysfunction. She had a false-positive stress test and subsequent negative coronary angiogram during this admission. She was discharged 06/16/17 with Hyzaar rather than Atenolol for antihypertensives. She has been measuring her blood pressure at home as usual. Yesterday, she saw Dr. Koch, first grade teacher, for a routine followup. During her admission, pacer placement was recommended if the patient continued to show pauses with symptoms, and the patient states this was recommended due to the fact that Atenolol seems to be the only medication that adequately controls her hypertension without adverse side effects. Today, the patient noted a headache and measured her blood pressure at 226/150. She presents for evaluation. No fever, chills, chest pain, shortness of breath, nausea, vomiting, diarrhea, urinary complaints, lightheadedness. REVIEW OF SYSTEMS: Aside from elements discussed in the HPI, a comprehensive 10-point review of systems was reviewed and is negative. PAST MEDICAL HISTORY: 1. Hypertension 2. History of breast cancer s/p left modified mastectomy 3. 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 Occasional social alcohol use. Nonsmoker. No illicit drug use. Dr. Serrano PCP. VITAL SIGNS: Reviewed by me. BP 213/136. GENERAL: Well-developed, well-nourished, resting comfortably in no respiratory distress. HEENT: Atraumatic. Eyes: No icterus, no injection. Mouth: moist mucous membranes. No erythema or lesions. Neck: supple with no adenopathy. LUNGS: Clear to auscultation bilaterally, no wheezes, rhonchi or rales. CARDIAC: Sinus pause, otherwise regular rate and rhythm. No rubs, murmurs or gallops. ABDOMEN: Soft, nontender, nondistended, bowel sounds normal. BACK: No CVA tenderness. EXTREMITIES: No trauma. No edema. Range of motion is normal throughout. NEURO: Alert and oriented, grossly nonfocal. SKIN: Warm and dry, no rash. PSYCHIATRIC: Normal mentation, no agitation. Portions of this note were transcribed by a resident medical officer. I personally performed a history, physical exam, medical decision making, and confirmed accuracy of information the transcribed note. ED Course: 12-LEAD EKG: Please see the full report in [facility]. My interpretation: sinus rhythm, slight st depression laterally. 72 y/o female presents with hypertension. Plan for EKG, labs including CBC, chemistries, Troponin. Plan to administer 0.1mg PO Clonidine and Hyzaar 50/12.5 for antihypertensive effects. 19:20 BP 124/80 Patient strongly prefers to return home tonight and follow up outpatient for further pacer placement discussion. Plan to discharge home in good condition with prescription for Clonidine. She will follow up with Drs. Canales and August tomorrow for further evaluation. Strict return precautions discussed. She is comfortable with this plan. 19:[address] Machado, sales representative consultant for Drs. Canales and August. Plan to proceed as above. She may need a pacemaker for significant sinus pauses and other malignant autumn-dysrhythmias, but it appears that her blood pressure can be controlled with hyzaar and potentially addition of clonidine. MDM: Diff dx considered included but not limited to hypertension, malignant hypertension, anxiety, hypertensive urgency, medication failure. - Data Points Laboratory Results: Laboratory Results 07/09/17 18:05 07/09/17 18:05 Medications Given: Discontinued Medications Clonidine (Catapres) 0.1 mg PO EDNOW ONE Stop: 07/09/17 18:02 Last Admin: 07/09/17 18:12 Dose: 0.1 mg HCTZ/Losartan Potassium (Hyzaar 50/12.5) 1 tab PO EDNOW ONE Stop: 07/09/17 18:31 Last Admin: 07/09/17 18:23 Dose: 1 tab General Time Seen by Provider: 07/09/17 17:41 Initial Vital Signs: Initial Vital Signs Temperature (C) 36.5 C 07/09/17 17:46 Heart Rate 90 07/09/17 17:46 Respiratory Rate 18 07/09/17 17:46 Blood Pressure 213/136 H 07/09/17 17:46 O2 Sat (%) 98 07/09/17 17:46 O2 Delivery Mode Room Air Allergies/Adverse Reactions: Sulfa (Sulfonamide Antibiotics) [Sulfa(Sulfonamide Antibiotics)] Allergy (Mild, Verified 06/15/17 11:13) Vomiting codeine Allergy (Verified 07/10/17 15:08) Home Medications: Medication Instructions Recorded Anastrozole [Arimidex 1 mg (*)] 1 mg PO HS 08/31/13 Bimatoprost 0.01% [Lumigan 0.01% 1 drops EACHEYE HS 08/31/13 (*)] Acetaminophen [Tylenol 325mg (*)] 650 mg PO Q4HRS PRN tab 07/12/17 Aspirin [Aspirin 81mg (*)] 81 mg PO DAILY tab.chew 07/12/17 Atorvastatin Calcium [Lipitor 40 40 mg PO HS #30 tab 07/12/17 mg (*)] Losartan/Hydrochlorothiazide 1 each PO DAILY #30 tablet 07/12/17 [Hyzaar 100-25 Tablet] Melatonin [Melatonin 3 MG (*)] 3 mg PO HS PRN tab 07/12/17 amLODIPine BESYLATE [Norvasc 2.5 2.5 mg PO HS #30 tab 07/12/17 mg (*)] Departure - Departure Disposition: Home, Routine, Self-Care Clinical Impression: Hypertension Qualifiers: Hypertension type: essential hypertension Qualified Code(s): I10 - Essential ( primary) hypertension Condition: Good Instructions: Hypertension (ED) Additional Instructions: Continue to take Hyzaar twice a day as prescribed. Take Clonidine in the late afternoon as prescribed as needed for hypertension uncontrolled by your regular medication, as we discussed. Follow up with Dr. Canales and Dr. Koch tomorrow without fail. Return to the emergency department for further uncontrolled hypertension, severe headache, chest pain, shortness of breath, or other worsening of condition. Referrals: Kelin Serrano MD [Primary Care Provider] - As per Instructions Wilian Canales MD [Medical Doctor] - As per Instructions Geoffrey Koch MD [Medical Doctor] - As per Instructions Report Scribed for: Bella Valderrama Report Scribed by: Melba Joshi Date of Report: 07/09/17 Time of Report: 17:41
--- NOTE | 2017-07-09 17:56 | CPEKG ---
Heart Rate: 81 RR Interval: 741 P-R Interval: 116 QRSD Interval: 88 QT Interval: 380 QTC Interval: 441 P Woodburn: 46 QRS Woodburn: 11 T Wave Woodburn: -6 EKG Severity - BORDERLINE ECG - EKG Impression: SINUS RHYTHM EKG Impression: PROBABLE LEFT ATRIAL ABNORMALITY EKG Impression: MINIMAL ST DEPRESSION, LATERAL LEADS Electronically Signed By: Bella Valderrama 09-Jul-2017 22:42:22
[2017-07-09] MEDS ORDERED: LOSARTAN/HCTZ 50/12.5 1 TAB PO SCH (18:15)
[2017-07-09 18:19] LABS: PLATELET COUNT 264 10^3/uL (150-400)
[2017-07-09] MEDS ORDERED: LOSARTAN/HCTZ 50/12.5 1 TAB PO ONE (18:30)
[2017-07-09 18:46] VITALS: RESP 16
[2017-07-09 19:48] VITALS: BP 113/70; PULSE 77; TEMP 98.2; O2SAT 96
== END 2017-07-09 20:07 | disposition home or self-care (01) ==
DX: I10 Essential (primary) hypertension (principal); Z79.82 Long term (current) use of aspirin; Z85.3 Personal history of malignant neoplasm of breast

== ENCOUNTER 2017-07-10 12:05 | Inpatient (IN) | payer OTHER ==
[2017-07-10] MEDS ORDERED: ONDANSETRON DISINTEGRATING 4 MG TAB PO PRN (15:21)
[2017-07-10] MEDS ORDERED: ONDANSETRON 4 MG/2 ML VIAL IVP PRN (15:21)
[2017-07-10] MEDS ORDERED: ACETAMINOPHEN 325 MG TAB PO PRN (15:21)
[2017-07-10] MEDS ORDERED: LOSARTAN/HCTZ 50/12.5 1 TAB PO ONE (15:30)
[2017-07-10] MEDS ORDERED: TEMAZEPAM 15 MG CAP PO PRN (15:48)
[2017-07-10] MEDS ORDERED: PNEUMOC 13-VAL CONJ-DIP CRM/PF 0.5 ML SYR IM ONE (19:50)
[2017-07-10] MEDS: ANASTROZOLE 1 MG TAB PO SCH (20:46)
--- NOTE | 2017-07-10 21:53 | GHP ---
[f rep st] HISTORY AND PHYSICAL DATE OF ADMISSION: 07/10/2017 HISTORY OF PRESENT ILLNESS: This is a 72-year-old very healthy-looking female, with past medical his tory of appendectomy, right modified radical mastectomy, hypertension, breast carcinoma, osteopenia, who came in on 15 of June with symptoms of lightheadedness and dizziness. She has been hypertens jesika for a number of years and has been treated with atenolol, and about a year back lisinopril was ad ded to her regimen. 6 months ago prior the patient had been having external shortness of breath in t he morning when she woke up and she when she was walking up a small hill from her car to her workplac e, that last about 30 seconds and would resolve on its own without any progression of the same. She mentions that occasionally she has not been feeling well and feeling flushed. However, she did note her blood pressure to be high a couple of days prior to 15 of June, and was asked to take additio nal atenolol, which she did, after which she woke up with headache, did not feel like herself, and fe lt like what she has been feeling for the past 6 months, and attributed it to not having eaten. She had breakfast and checked her blood pressure later on. Her blood pressure was 140/80, but pulse was 40, and considering the low pulse, she came to the hospital. She was evaluated. Her atenolol was he ld, after which her heart rate went up marginally. The next day, she was further evaluated by my col leagues, and a stress test was performed. Stress test seemed questionable for possible ischemia and, hence, a cardiac catheterization was performed which was negative, at which point in time, her heart rate had improved somewhat, and it was decided to discharge her to home and follow up in the outpati ent, which was done, and in the outpatient setting her blood pressures continued to be high, despite the use of losartan and hydrochlorothiazide, and the medication was doubled. However, she noted some headaches on 09 of July, and came back to the emergency room, at which point in time, her heart rate was 81 beats per minute, blood pressure 236/120. It was recommended that she gets admitted. H owever, she was not inclined to do so, and, hence, the patient went home. However, today we had a shira mobley conversation with the patient, which is detailed in my assessment and plan, and this patient has b een admitted with increased blood pressure for further treatment. The patient denies any current lig htheadedness, dizziness, chest pain, pressure, presyncope, or syncope. PAST MEDICAL HISTORY: Hypertension, breast carcinoma status post mastectomy, osteopenia. PAST SURGICAL HISTORY: Appendectomy, right modified mastectomy. REVIEW OF SYSTEMS: Other than the above, negative. MEDICATIONS: Losartan hydrochlorothiazide combination, and clonidine p.r.n. 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 No tobacco use. No significant alcohol use. FAMILY HISTORY: Positive for hypertension. ALLERGIES: Intolerant to sulfa. PHYSICAL EXAM: VITAL SIGNS: Blood pressure 141/81, pulse of 80, respiratory rate 16. HEENT: Pupil s equally reacting to light, accommodating. NECK: No JVD. No thyromegaly. No lymphadenopathy. CH EST: Good air entry, bilaterally equal. No rales, rhonchi, rub. HEART: S1, S2 regular. No S3. N o murmurs. ABDOMEN: Soft, nontender. No rigidity. Bowel sounds present. EXTREMITIES: No edema. NEUROLOGIC: Alert, oriented. Cranial nerves grossly intact. PSYCHIATRIC: Asking appropriate ques tions. In good spirit. EKG: Normal sinus rhythm. IMPRESSION AND PLAN: 72-year-old female with hypertension, breast cancer status post mastectomy, who comes in for evaluation of her hypertension. Her blood pressure is 141/81. I had an extensive disc ussion with the patient, especially with regard to the fact that she has normal heart rate if she is not on beta-kunal. The only reason for the beta-kunal is need for better control of her blood pr essure. However, I explained to the patient and her son that there are multiple classes of medicatio ns that we can potentially use. However, if she is so inclined to get the pacemaker and be on beta-b locker, I can implant the pacemaker. However, there are possibilities of using other medications, wh ich will not decrease her heart rate, however, will control the blood pressure. This may be worth an attempt. I am concerned about her high blood pressure and occasional hypertension urgency and, henc e, better control of the blood pressure will be needed. She and her son have agreed to the hospital stay with an attempt at blood pressure management without the use of beta-kunal, and if this fails, then beta-kunal use with the potential of pacemaker implant can be considered. Hence, at this poi nt in time, we will admit the patient. Start her on a small dose of amlodipine and evaluate her. We will keep her for 2-3 days to make sure she has good control of the blood pressure. Thank you for letting us participate in the patient's care. Feel free to call for questions. /[id number]/MODL
[2017-07-11] MEDS: BIMATOPROST 0.01% 2.5 ML OPHT.BTL EACHEYE SCH ×2 (01:23→22:14)
[2017-07-11] MEDS: LOSARTAN/HCTZ 50/12.5 1 TAB PO SCH (09:00)
[2017-07-11] MEDS ORDERED: MELATONIN 3 MG TAB PO PRN (09:20)
[2017-07-11] MEDS ORDERED: POLYETHYLENE GLYCOL 3350 17 GM PKT PO PRN (09:21)
[2017-07-11] MEDS ORDERED: LACTULOSE 20 GM/30 ML UDCUP PO PRN (09:21)
[2017-07-11] MEDS ORDERED: MAGNESIUM HYDROXIDE 30 ML UDCUP PO PRN (09:21)
[2017-07-11] MEDS ORDERED: BISACODYL 10 MG SUPP PR PRN (09:21)
[2017-07-11] MEDS ORDERED: IOPAMIDOL (ISOVUE 370) 100 ML BTL IV ONE ×2 (10:33→10:55)
--- NOTE | 2017-07-11 11:00 | ASMTCASEMG ---
Living Arrangements What is your living Answers: With Spouse arrangement? Who do you live with? Type Of Residence What kind of residence do Answers: House you live in? Discharge Plan Comments Coordination Status Comments Notes: Pt is a 72 y/o female admitted for urgent hypertension. Pt will most likely d/c independent when medically stable. No therapies ordered at this time. CM available for changes. Plan: Independent Date Signed: 07/11/2017 10:59 AM Electronically Signed By:KAVON Hicks
--- NOTE | 2017-07-11 14:12 | PDCARPN ---
Cardiology Progress Note Chief Complaint: Patient reports feeling better on new medication regime. Assessment/Plan: Assessment: 72-year-old female past history of appendectomy, right modified radical mastectomy due to breast carcinoma, hypertension, and osteopenia. Presented presented to the emergency department with episodes of lightheadedness, she was found to be bradycardic with pulse in the 40s. This was felt due to long history of atenolol a usage for hypertension. During that hospitalization, she did undergo cardiac catheterization as part of her workup, noting an abnormal stress test showing possible ischemia. Cardiac catheterization did showed no flow limiting disease. Her beta-kunal had been discontinued, and had noticed significant improvement in heart rate. Unfortunately, since then she has been having problems with blood pressure control. Reporting systolics as high as 210. with symptoms of lightheadedness. Admitted last evening for hypertension urgency, with concerns about potentially needing to have a ppm implantation and be restarted on beta-blockers for better controlled. Today: Patient's blood pressure noted to be mildly elevated this morning prior to a.m. dose of losartan/hydrochlorothiazide , with systolic at 177, diastolic at 95. Continuous cardiac monitoring has showed sinus rhythm, with occasional pause, less than 2 seconds. Also noted during the evening heart rate did decrease down to 40 BPM. Patient asymptomatic of any lightheadedness, palpitations, near-syncope, or syncopal events. She denies of any chest pressure or pain. Laboratory studies drawn so far today have shown mild elevated PTH at 88.7, but normal calcium range., salivary cortisol is pending. A.m. cortisol level was 11.9. Patient did undergo a renal ultrasound today, showed mildly increased velocity in the mid left renal artery as well as the mid distal right renal artery, questioning possible stenosis versus tortuosity of the vessel. Due to this, patient did undergo CTA of the renal arteries which showed no evidence of renal artery stenosis or fibromuscular dysplasia. Patient was seen today with Dr. Canales. Plan: 1. Hypertension: Appears to be better controlled today with change of losartan/ hydrochlorothiazide to 100/25 q.a.m. , and adding amlodipine 2.5 mg at bedtime. Have started workup for secondary causes of hypertension. Patient has been noted to have normal TSH level, normal a.m. cortisol level , mildly elevated PTH , but normal calcium. Salivary cortisol levels pending. 24 hour urine for metanephrines is pending. CTA of renal showing no flow limiting disease. Due to the patient's episodes of bradycardia , lightheadedness , and hypertension , will have her get a echocardiogram to evaluate cardiac structure and function. Have discussed with the patient importance of not using NSAIDs. 2. Bradycardia with occasional pause: Patient has reported lightheaded episodes in the past. Recent hospitalization for bradycardia which has improved with the discontinuing of beta-blockers. Patient noted overnight to have episodes of bradycardia down into the 40s, and occasional pause but not longer than [address] Canales, he would like the patient to stay in the hospital for 1 more night on continuous cardiac monitoring to assure no other significant arrhythmias or malignant pauses. 3. CAD: Recent cardiac catheterization showed mild non flow limiting CAD. Have started patient on low-dose aspirin therapy. Have ordered a fasting lipid panel to be done in a.m., pending on results, it may be beneficial for her to start on statin therapy. Due to patient needing to be on continuous cardiac monitoring for episodes of bradycardia with occasional pause, and blood pressure control. We will plan for patient to be in hospital for greater than 2 midnights. 07/11/17 14:12 Subjective: Patient denies of any chest pain, shortness of breath, palpitations, lightheadedness, near-syncope, or syncopal events. Reports no orthopnea, PND. Denies of any symptoms suggestive of TIA or CVA. Reviewed/Discussed With: other (Dr Canales) Objective: Vital Signs (8 Hrs) Temp Pulse Resp BP Pulse Ox 07/11/17 12:22 36.6 C 69 18 110/83 H 97 07/11/17 08:00 36.8 C 74 19 177/95 H 99 Intake/Output (24 Hrs) 07/10/17 07/11/17 07/12/17 05:59 05:59 05:59 Intake Total 350 Balance 350 Intake: Oral (ml) 350 Other: Weight 69 kg Intake Quantity Yes Sufficient Number of Voids Toilet 2 Result Diagrams: 07/11/17 05:08 - Physical Exam Constitutional: WDWN, healthy appearing, no apparent distress Ears, Nose, Mouth, Throat: moist mucous membranes Cardiovascular: regular rate and rhythm, no rubs, no gallops, systolic murmur (2 /6 lsb), pulses symmetric bilat, No jugular vein distention, No carotid bruit Peripheral Pulses: 1+: dorsalis-pedis (R), dorsalis-pedis (L), 2+: carotid (R), carotid (L) Respiratory: clear to auscultate bilat, no crackles, no wheezes, No reduced air movement Gastrointestinal: normoactive bowel sounds Skin: warm Neurologic: AAOx3 Psychiatric: cooperative, interactive, following commands ICD10 Worksheet Patient Problems: Problems Problem Status Onset Urinary tract infection Acute Bradycardia Acute
--- NOTE | 2017-07-11 16:10 | ECHO ---
[email or web address] [address] [address] Main: [phone] Fax: [email or web address] Echocardiogram Name: TATI AYALA MR#: [id number] Study Date: 07/11/2017 Study Time: 02:49 PM Date of : 1945 Age: 72 year(s) Height: 170.2 cm (67 in.) Weight: 68.95 kg (152 lb.) BSA: 1.8 m2 Gender: Female Examination: Echo Indication: HTN/lightheadedness Image Quality: Contrast: Requested by: Vinay Salgado BP: 123 mmHg/67 mmHg Heart Rate: Rhythm: Indication: HTN/lightheadedness Procedure Staff Imaging Analyst: Yenni Moore [facility] Reading Physician: Humberto Mcfarland Requesting Provider: Conclusions: Normal size left ventricle. Mild concentric LV hypertrophy. Global hypercontractility of the left ventricle. The ejection fraction is estimated to be 75-80 %. Grade 1 diastolic dysfunction (abnormal relaxation). Normal RV function. The left atrium is normal in size. The right atrium is normal in size. The pulmonary artery pressure is normal. No pericardial effusion. Measurements: Chambers Valvular Assessment AV/MV Valvular Assessment TV/PV Normal Normal Normal Name Value Range Name Value Range Name Value Range IVSd (2D): 1.0 cm (0.6 cm-1.1 AV meanP mmHg ( - ) TR Vmax: 2.43 mm/s ( - ) cm) MV E Vmax: 0.59 m/s ( - ) TR PGmax: 24 mmHg ( - ) LVDd (2D): 4.1 cm (3.9 cm-5.3 MV A Vmax: 0.80 m/s ( - ) syst. PAP: 29 mmHg ( - ) cm) MV E/A: 0.74 ( - ) LVDs (2D): 2.5 cm (2.1 cm-4 cm) LVPWd (2D): 1.0 cm ( - ) EF Range: 75-80 % Continued Measurements: Chambers Valvular Assessment AV/MV Valvular Assessment TV/PV Name Value Name Value Name Value LADs: 3.1 cm MV E/E' Septal: 12.60 CVP (est.): 5 mmHg Patient: TATI AYALA Study Date: 07/11/2017 Page 1 of 2 02:49 PM LADs Lon.9 cm MV E/E' Lateral: 13.20 LA Area: 16.1 cm2 Findings: Left Ventricle: Normal size left ventricle. Mild concentric LV hypertrophy. Global hypercontractility of the left ventricle. The ejection fraction is estimated to be 75-80 %. No regional wall motion abnormality. Grade 1 diastolic dysfunction (abnormal relaxation). Right Ventricle: Normal size right ventricle. Normal RV function. Left Atrium: The left atrium is normal in size. Right Atrium: The right atrium is normal in size. Mitral Valve: There is mild thickening of the mitral valve leaflets. Mild mitral annular calcification. Mild mitral valve regurgitation is present. Aortic Valve: The aortic valve is normal in appearance and function. Tricuspid Valve: The tricuspid valve is normal in appearance and function. Mild tricuspid regurgitation is present. The pulmonary artery pressure is normal. Pulmonic Valve: The pulmonic valve is normal in appearance and function. Aorta: The aorta is normal. Pericardium: No pericardial effusion. (No Signature Object) Patient: TATI AYALA Study Date: 07/11/2017 Page 2 of 2 02:49 PM [id number]
[2017-07-11] MEDS: ANASTROZOLE 1 MG TAB PO SCH (22:04)
[2017-07-11] MEDS: SENNOSIDES/DOCUSATE SODIUM TAB PO SCH (22:06)
[2017-07-12 07:41] VITALS: BP 149/79; PULSE 66; RESP 13; TEMP 98.6; O2SAT 97
[2017-07-12] MEDS: LOSARTAN/HCTZ 50/12.5 1 TAB PO SCH (08:39)
[2017-07-12] MEDS: SENNOSIDES/DOCUSATE SODIUM TAB PO SCH (08:40)
[2017-07-12] MEDS ORDERED: ASPIRIN 81 MG CHEWABLE TAB PO SCH (09:00)
--- NOTE | 2017-07-12 12:00 | SOAPPROG ---
SOAP Progress Note Assessment/Plan: Assessment: Bradycardia Abnl ETT Hypertension her bp is well controlled. she has a cath and has no obstructive CAD . She has no findings of ACS / CHF or sig rhythm issues. she wishes to go home she has a 24 hr urine pending and will d/c when that is complete. she will follow w her rug layer all questions answered. she will call this weekend anytime if questions. To improve her bp she and I discussed the role of excercise 6 x per week and she will commit to this. we also rev role of meditation and she is educated in meditation and agrees to begin . she has no issues w slow heart rates / no indication for pacing she understands . Plan: 07/12/17 12:00 07/12/17 12:01 Subjective: she feels well today . she has no cp /spob /coto/ jt / no gi issues no neuro complaints of any kind. she is eager for d/c. Objective: Vital Signs Temp Pulse Resp BP Pulse Ox 37.0 C 66 13 149/79 H 97 07/12/17 07:40 07/12/17 07:40 07/12/17 07:40 07/12/17 07:40 07/12/17 07:40 Laboratory Results 07/11/17 05:08 07/11/17 07/12/17 07/13/17 05:59 05:59 05:59 Intake Total 350 1930 Output Total 1000 500 Balance 350 930 -500 Physical Exam - Physical Exam General Appearance: alert, no apparent distress Neck: supple Respiratory: rhonchi, No prolonged expiration, No prolonged inspiration Cardiac/Chest: regular rate, rhythm, systolic murmur, No edema, No extra beats Abdomen: non-tender, soft, No organomegaly Back: No CVA tenderness Extremities: No pedal edema, No calf tenderness Neuro/Psych: alert, normal mood/affect ICD10 Worksheet Patient Problems: Problems Problem Status Onset Bradycardia Acute Urinary tract infection Acute
--- NOTE | 2017-07-12 13:49 | GDS ---
[f rep st] DISCHARGE SUMMARY ADMISSION DIAGNOSES: 1. Hypertension urgency. 2. History of bradycardia. 3. History of breast carcinoma. 4. Osteopenia. 5. Known coronary artery disease, non-flow limiting, based on cardiac catheterization. DISCHARGE DIAGNOSES: 1. Hypertension. 2. Episodes of bradycardia. 3. Coronary artery disease. 4. Hyperlipidemia. 5. History of breast carcinoma. 6. Osteopenia. PROCEDURES DONE DURING HOSPITALIZATION: 1. Abdominal renal Doppler study. 2. Abdominal renal artery CTA. 3. Echocardiogram. 4. Continuous cardiac monitoring. BRIEF HISTORY: Please see H and P. Briefly, the patient is a 72-year-old female, recent hospitaliza tion for lightheadedness and fatigue, noted to be bradycardic with rates down into the 20s. AV yaritza agent that she had been on for blood pressure discontinued. She did undergo coronary catheterizatio n during that hospitalization in June, with noted set-[id number] CAD. Discharged home on Hyzaa r 50/12.5. Has been having episodes of hypertension over the last few days, with reported systolic b lood pressures up into the 200s. There was concern that potentially patient may need to be restarted on beta blockers to get better blood pressure control and potentially may need pacemaker. She came into the hospital for med management and evaluation of her cardiac rhythm. HOSPITAL COURSE: Patient admitted directly to PCU. At the time of admission, reporting no chest adri n, shortness of breath, lightheadedness, near syncope, or syncopal events. At the time, medication c hanges were made, including increasing her Hyzaar to 100/25 in the morning and adding a dose of amlod ipine at 2.5 mg p.o. daily. She did undergo renal artery Doppler study which suggested potentially m ild stenosis, soon afterwards undergoing CTA renal artery which showed no stenosis. She also has bee n worked up for secondary causes of her hypertension. Throughout her hospitalization, she has been m aintained on continuous cardiac monitoring. She has been maintaining sinus rhythm/sinus autumn. She has been noted, during sleeping hours, to have occasional episode of bradycardia, with heart rates do wn into the high to mid 40s. She has been noted to have occasional pause, all less than 2 seconds. She has had no lightheadedness, near syncope, or syncopal events. She has been up. Today, she is re porting no chest pain, shortness of breath, lightheadedness. She has been up and walking the unit wi thout any difficulties. With med management, she has had improvement in blood pressures. CURRENT PHYSICAL EXAMINATION: GENERAL APPEARANCE: Medium-built, well-groomed female. She is alert and oriented to person, place, time, and situation. Appears to be under no acute distress. CURRENT VITAL SIGNS: Blood pressure 149/79, heart rate 66, sinus rhythm on the monitor, respiratio ns 13 with saturation 97% on room air. Temperature of 37 degrees Celsius. HEENT: Head is normoceph alic. Lips and tongue are pink and moist, with no signs of cyanosis. Conjunctivae pink. NECK: Tra tere is midline, +2 carotid pulses bilateral. No auscultated bruits. No jugular vein distention. R ESPIRATORY: Lungs clear to auscultation. No rhonchi, rales, or wheezes. No accessory muscle use. No intercostal muscle retraction noted. CARDIAC: Regular rate, regular rhythm, S1, S2. No S3, S4, gallops, rubs, or murmurs noted. ABDOMEN: Soft, nontender, bowel sounds x4 quadrants, no organomega ly, no palpable masses. SKIN: [place], warm, dry. No cyanosis, no clubbing, no peripheral edema. VAS CULAR: +2 carotids bilateral, +2 radials bilateral, +1 dorsal pedal and posterior tibial pulses bila teral. SKIN: [place]. LABORATORY STUDIES: Laboratory studies, [facility] showed WBC of 5.87, hemoglobin of 14.7, hematocrit of 42.4, and platelet count of 264. Day of adm ission, on July 10 TSH level was drawn which was 1.640. PTH level was measured at 88.7, mildly high, but her calcium was 10.0, within normal limits. Today's laboratory studies showed sodium of 13 8, potassium 4.6, chloride 102, CO2 of 23, BUN 27, creatinine 0.7, glucose 103 calcium 9.8. Triglyce rides were noted to be 138, total cholesterol 222, LDL 153, HDL 42. A.m. cortisol level was drawn wh ich was 11.9. Currently, methylepinephrine and norepinephrine 24-hour urine sample is pending. Sali vary cortisol levels are also pending. STUDIES: Abdominal ultrasound done on July 11 did show mild increased velocity involving the mi d left renal artery as well as mid to distal renal artery, although some of this could be related to tortuosity of the vessel on each side. The resistance index and acceleration times were normal on ea ch side. There was also noted a 1 cm cyst in the mid left kidney and a few small 7 mm cysts also in the left kidney. Abdominal CTA done to evaluate renal flow: Normal CT angiogram of the abdomen. No evidence of renal artery stenosis or fibromuscular dysplasia to account for patient's blood pressure . Echocardiogram was done on July 11 showing normal LV size, mild concentric LVH, global hyperc ontractility of the left ventricle, with EF estimated between 75% and 80% diastolic dysfunction, note d normal RV function. LA was normal size. RA was normal in size. Pulmonary artery pressure was nor mal. No pericardial effusion. DISCHARGE DISPOSITION: Patient will be discharged home in stable condition. She is under no activit y restriction and has been actually encouraged to exercise. No arrhythmias were noted that would sug gest patient needs a pacemaker at the current time. DISCHARGE MEDICATIONS: Please see discharge med reconciliation sheet. Note that patient has been st arted on Hyzaar 100/25 mg p.o. in the a.m. She has also been started on amlodipine 2.5 mg p.o. h.s. Due to recent cardiac catheterization showing mild CAD, she has been also started on 81 mg of aspiri n daily, and she has been started on Lipitor at 40 mg p.o. h.s. The rest of her home medications are unchanged. DISCHARGE INSTRUCTIONS: Hypertension discharge instructions gone over with the patient, including mo nitoring blood pressure on a daily basis and keeping a log, bringing back with her for her next offic e visit, medication compliancy. No decrease NSAID usage. Medication education on all new medication s gone over with the patient. We will plan for her to have a basic metabolic panel done in the next 7-10 days, with the recent increase of losartan/hydrochlorothiazide. She will also have a repeated f asting lipid, liver, and CPK panel done in 6 weeks. Patient has been provided lab slips upon dischar for these procedures. As for elevated PTH, she will follow up with her PCP. She informs me she h as an annual physical scheduled with her on Friday. She has been scheduled to follow up with Dr. Benji majano, her primary mail distribution clerk, in which our office will call her Friday and make an appointment for her to be seen in the next 2 weeks. Patient has been told that, if any problems or concerns postdischar ge, she is to notify our clinic or return to the hospital immediately. At the time of discharge, she verbalizes understanding all instructions and has no questions or concerns. Total time spent on discharge greater than 30 minutes. /[id number]/MODL
[2017-07-12] MEDS ORDERED: ATORVASTATIN CALCIUM 40 MG TAB PO SCH (21:00)
--- NOTE | 2017-07-13 15:07 | ASDISCHSUM ---
Discharge Information Plan Status:Home with No Needs Medically Cleared to Leave:07/11/2017 Discharge Date:07/12/2017 11:25 AM CM D/C Disposition:Home, Routine, Self-Care ADT D/C Disposition:Home, Routine, Self-Care Projected Discharge Date:07/12/2017 12:00 AM Transportation at D/C:Family Discharge Delay Reason: Follow-Up Date:07/12/2017 12:00 AM Discharge Slot: Final Diagnosis:HTN urgency, Osteopenia, CAD Placement Information Patient Contact Information Contact Name:VINCE Relationship: Address:[address] Home Phone: City:[place] Alternate Phone: State/Zip Code:[place] [address] Email: Financial Information Financial Class: Primary Plan Desc:MEDICARE OUTPATIENT Primary Plan Number:[id number] Secondary Plan Desc:[employer] Secondary Plan Number:[id number] Assessment Information [facility] Initial CM Assessment Living Arrangements What is your living Answers: With Spouse arrangement? Who do you live with? Type Of Residence What kind of residence do Answers: House you live in? Discharge Plan Comments Coordination Status Comments Notes: Pt is a 72 y/o female admitted for urgent hypertension. Pt will most likely d/c independent when medically stable. No therapies ordered at this time. CM available for changes. Plan: Independent Date Signed: 07/11/2017 10:59 AM Electronically Signed By:KAVON Hicks Case Management Discharge Plan Note Case Management Discharge Discharge Order Complete? Answers: Yes Patient to Obtain Answers: Independently Medications Transportation Arranged Answers: Family/Friends Transport will Pick (Date 07/12/2017 12:00 AM & Time) Family Notified Answers: Yes Notes: Family to transport Discharge Comments Notes: Patient discharged after being medically managed. No discharge needs. Date Signed: 07/13/2017 03:06 PM Electronically Signed By:Anitha Landeros LCSW Intervention Information Intervention Type:*Occurence 72 Date of Service:07/10/2017 03:21 PM Patient Type:Inpatient Staff Member:EDWIN Martin, Cherelle Hours:0.25 Discipline: Severity:1 (0-1 Hours) Comment:[facility] 72 for 07/10/2017 15:21 to 07/11/2017 14:48 as patient discharged < 2 MN LOS after patient admission status changed from observation to inpatient).
== END 2017-07-12 11:25 | disposition home or self-care (01) | DRG 305 ==
LOC: F2W 14:12 → OBSVTOIN 07-11 14:48
PROVIDERS: ADMIT Internal Medicine Cardiovascular Disease; ATTEND Internal Medicine
DX: I10 Essential (primary) hypertension (principal); R00.1 Bradycardia, unspecified; I25.10 Atherosclerotic heart disease of native coronary artery without angina pectoris; E78.5 Hyperlipidemia, unspecified; M85.89 Other specified disorders of bone density and structure, multiple sites; Z85.3 Personal history of malignant neoplasm of breast; Z90.11 Acquired absence of right breast and nipple; Z23 Encounter for immunization
CPT/HCPCS: 83835-90; G0009; G0378; Q9967

== ENCOUNTER → 2017-09-02 | Outpatient (CLI) | payer OTHER | LOC: FIMAGING 14:57 | PROVIDERS: ATTEND Internal Medicine | DX: Z13.820 Encounter for screening for osteoporosis (principal); M81.0 Age-related osteoporosis without current pathological fracture; C50.919 Malignant neoplasm of unspecified site of unspecified female breast; K63.5 Polyp of colon ==

== ENCOUNTER → 2018-05-26 | Outpatient (CLI) | payer OTHER | LOC: FIMAGING 08:27 | PROVIDERS: ATTEND Internal Medicine Hematology & Oncology | DX: Z12.31 Encounter for screening mammogram for malignant neoplasm of breast (principal); Z98.82 Breast implant status; Z85.3 Personal history of malignant neoplasm of breast; Z90.12 Acquired absence of left breast and nipple ==